=== PATIENT | male | born 1935 | race American Indian/Alaskan Native ===

== ENCOUNTER 2017-02-27 18:58 | Inpatient (IN) | payer MEDICARE ==
--- NOTE | 2017-02-27 19:24 | C.PDOC ---
History Of Present Illness Patient is an 81 year old male who presents to the ER with a complaint of intermittent chest pain since yesterday. He states the pain is to his chest wall ; denies SOB, fever or cough. Chief Complaint (Nursing): Chest Pain History Per: Patient History/Exam Limitations: no limitations Onset/Duration Of Symptoms: Days, Intermittent Episodes Current Symptoms Are (Timing): Still Present Associated Symptoms: denies: Other (SOB, fever, cough) Modifying Factors: None Exacerbating Factors: None Alleviating Factors: None Recent travel outside of the [place]: No Past Medical History Reviewed: Historical Data, Nursing Documentation, Vital Signs Vital Signs: Last Vital Signs Temp 98.4 F 02/27/17 19:08 Pulse 73 02/27/17 21:05 Resp 20 02/27/17 21:05 BP 168/81 H 02/27/17 21:05 Pulse Ox 95 02/27/17 21:07 - Medical History PMH: Arthritis, Asthma, HTN Surgical History: No Surg Hx Family History: States: Unknown Family Hx - Social History Hx Alcohol Use: Yes Hx Substance Use: No - Immunization History Hx Tetanus Toxoid Vaccination: No Hx Influenza Vaccination: Yes Hx Pneumococcal Vaccination: No Review Of Systems Constitutional: Negative for: Fever Cardiovascular: Positive for: Chest Pain Respiratory: Negative for: Cough, Shortness of Breath Physical Exam - Physical Exam Appears: Non-toxic, No Acute Distress Skin: Normal Color, Warm, Dry Head: Atraumatic, Normacephalic Oral Mucosa: Moist Chest: Symmetrical, No Tenderness Cardiovascular: Rhythm Regular, No Murmur Respiratory: No Rales, No Rhonchi, Wheezing (Occasional bilaterally) Gastrointestinal/Abdominal: Soft, No Tenderness Extremity: Pedal Edema (+1 pitting bilaterally) Neurological/Psych: Oriented x3, Normal Speech, Normal Cognition ED Course And Treatment - Laboratory Results Result Diagrams: 02/27/17 20:03 02/27/17 20:03 ECG: Interpreted By Me, Viewed By Me ECG Rhythm: Sinus Rhythm, Nonspecific Changes ECG Interpretation: Abnormal Interpretation Of ECG: Sinus rhythm with sinus arrythmia, nonspc st-T flattenibg lateral leads. no acute change from old tracings of 07/11/2016 Rate From EC O2 Sat by Pulse Oximetry: 95 (Room air) Pulse Ox Interpretation: Normal - Radiology CXR: Interpreted by Me, Viewed By Me CXR Interpretation: Yes: No Acute Disease. No: Infiltrates, Cardiomegaly Progress Note: EKG, blood work and CXR ordered. Disposition Discussed With Dr.: Charlie Vallecillo Doctor Will See Patient In The: Hospital Counseled Patient/Family Regarding: Diagnosis - Disposition Disposition: HOSPITALIZED Disposition Time: 21:29 Condition: STABLE - Clinical Impression Clinical Impression: Chest pain, Renal insufficiency - Scribe Statement The provider has reviewed the documentation as recorded by the Scribjanessa Thorpe All medical record entries made by the Marvibjanessa were at my direction and personally dictated by me. I have reviewed the chart and agree that the record accurately reflects my personal performance of the history, physical exam, medical decision making, and the department course for this patient. I have also personally directed, reviewed, and agree with the discharge instructions and disposition.
[2017-02-27] MEDS ORDERED: Albuterol 0.042% Inhal Sol (1.25 mg/3 mL) UD IH STA (19:34)
[2017-02-27] MEDS ORDERED: Nitroglycerin 2% Ointment Foilpak UD TOP STA (19:35)
[2017-02-27] MEDS ORDERED: Nitroglycerin 2% Ointment Foilpak UD TOP ONE (20:07)
[2017-02-27 20:10] LABS: BASO % 0.7 % (0.0-2.0); EOS # 0.1 K/uL (0.0-0.7); EOS % 1.3 % (0.0-4.0); HEMOGLOBIN 10.7 g/dL (12.0-18.0); LYMPH # 1.1 K/uL (1.0-4.3); LYMPH % 17.2 % (20.0-40.0); MEAN CORPUSCULAR HEMOGLOBIN 30.9 pg (27.0-31.0); MEAN CORPUSCULAR HGB CONC 32.5 g/dL (33.0-37.0); MEAN PLATELET VOLUME 8.3 fL (7.2-11.7); MONO # 0.9 K/uL (0.0-0.8); MONO % 14.1 % (0.0-10.0); NEUT # 4.2 K/uL (1.8-7.0); NEUT % 66.7 % (50.0-75.0); RBC 3.45 Mil/uL (4.40-5.90); RED CELL DISTRIBUTION WIDTH 13.9 % (11.5-14.5); WHITE BLOOD COUNT 6.3 K/uL (4.8-10.8)
[2017-02-27 20:17] LABS: ALBUMIN 3.5 g/dL (3.5-5.0)
[2017-02-27 20:18] LABS: INR 1.3; PROTHROMBIN TIME 14.3 SECONDS (9.7-12.2)
[2017-02-27 20:20] LABS: ALB/GLOB RATIO 1.1 (1.0-2.1); AST/SGOT 19 U/L (17-59); GFR AFRICAN-AMERICAN 41; GFR NON-AFRICAN AMERICAN 34
[2017-02-27 20:21] LABS: ALT/SGPT 25 U/L (21-72); BLOOD UREA NITROGEN 32 mg/dL (9-20); CALCIUM 9.3 mg/dl (8.6-10.4); URIC ACID 10.3 mg/dL (3.5-8.5)
[2017-02-27] MEDS ORDERED: Albuterol-Ipratrop 3 mg / 0.5 (3 ml) UD ONE (20:25)
[2017-02-27 20:35] LABS: B-TYPE NATRIURETIC PEPTIDE 698 pg/mL (0-900)
[2017-02-28] MEDS: Albuterol-Ipratrop 3 mg / 0.5 (3 ml) UD INH SCH ×4 (01:19→19:43)
[2017-02-28] MEDS: Enoxaparin 150 mg Syringe SC SCH ×3 (01:30→11:48)
[2017-02-28 05:29] LABS: CK-MB 1.1 ng/mL (0.0-3.38)
--- NOTE | 2017-02-28 08:36 | CP.PCM.CON ---
History of Present Illness - History of Present Illness History of Present Illness: CC chest pain frontal headache HPI Patient is an 81 year old male who presents to the ER with a complaint of intermittent chest pain since yesterday. He states the pain is to his chest wall ; denies SOB, fever or cough. Pt also c/o frontal headache for the last 3 days. Pt denied nausea and vomitting. Review of Systems - Constitutional Constitutional: Headache - EENT Nose/Mouth/Throat: absent: Nasal Congestion - Cardiovascular Cardiovascular: Chest Pain, Dyspnea on Exertion. absent: Edema - Respiratory Respiratory: absent: Excessive Mucous Production - Gastrointestinal Gastrointestinal: absent: Abdominal Pain, Diarrhea - Neurological Neurological: absent: Abnormal Gait Past Patient History - Infectious Disease Hx of Infectious Diseases: None - Past Medical History & Family History Past Medical History?: Yes - Past Social History Smoking Status: Never Smoked - CARDIAC Hx Cardiac Disorders: Yes Hx Hypertension: Yes - PULMONARY Hx Respiratory Disorders: Yes Hx Asthma: Yes - NEUROLOGICAL Hx Neurological Disorder: No - HEENT Hx HEENT Problems: No - RENAL Hx Chronic Kidney Disease: No - ENDOCRINE/METABOLIC Hx Endocrine Disorders: No - HEMATOLOGICAL/ONCOLOGICAL Hx Blood Disorders: No - INTEGUMENTARY Hx Dermatological Problems: No - MUSCULOSKELETAL/RHEUMATOLOGICAL Hx Musculoskeletal Disorders: Yes Hx Arthritis: Yes Hx Falls: No - GASTROINTESTINAL Hx Gastrointestinal Disorders: No - GENITOURINARY/GYNECOLOGICAL Hx Genitourinary Disorders: No - PSYCHIATRIC Hx Psychophysiologic Disorder: No Hx Substance Use: No - SURGICAL HISTORY Hx Surgeries: No - ANESTHESIA Hx Anesthesia: No Hx Anesthesia Reactions: No Hx Malignant Hyperthermia: No Has any member of the family had a problem w/ anesthesia?: No Meds Allergies/Adverse Reactions: Allergies Allergy/AdvReac Type Severity Reaction Status Date / Time No Known Allergies Allergy Verified 07/09/16 16:33 - Medications Medications: Current Medications Albuterol/Ipratropium (Duoneb 3 Mg/0.5 Mg (3 Ml) Ud) 3 ml INH RQ6 [facility] Last Admin: 02/28/17 08:08 Dose: 3 ml Clopidogrel Bisulfate (Plavix) 75 mg PO DAILY [facility] Enoxaparin Sodium (Lovenox) 80 mg SC Q12H [facility] Last Admin: 02/28/17 01:33 Dose: Not Given Metoprolol Tartrate (Lopressor) 50 mg PO BID [facility] Pneumococcal Polyvalent Vaccine (Pneumovax 23 Vaccine) 0.5 ml IM .ONCE ONE Stop: 02/28/17 10:01 Physical Exam - Constitutional Appears: Non-toxic - Head Exam Head Exam: NORMAL INSPECTION - Eye Exam Eye Exam: absent: Scleral icterus - ENT Exam ENT Exam: Mucous Membranes Moist - Neck Exam Neck exam: Positive for: Full Rom - Respiratory Exam Respiratory Exam: absent: Decreased Breath Sounds - Cardiovascular Exam Cardiovascular Exam: REGULAR RHYTHM - Extremities Exam Extremities exam: Negative for: calf tenderness, pedal edema Results - Vital Signs Recent Vital Signs: Last Vital Signs Temp 97.4 F L 02/28/17 08:11 Pulse 54 L 02/28/17 08:11 Resp 20 02/28/17 08:11 BP 160/80 H 02/28/17 08:11 Pulse Ox 97 02/28/17 08:11 - Labs Result Diagrams: 02/27/17 20:03 02/27/17 20:03 Labs: Laboratory Results - last 24 hr 02/28/17 05:06 Total Creatine Kinase 73 CK-MB (Mass) 1.10 Troponin I, Quant 0.0170 Assessment & Plan - Assessment and Plan (Free Text) Assessment: Chest pain - r/o CAD Headache ? etiology Renal insufficiency Hx of asthma Plan: trops q8h x 3 echo If trops is neg, Lexiscan stress test Agree w/ beta-yanni and anti-platelet
--- NOTE | 2017-02-28 09:24 | CP.PCM.HP ---
History of Present Illness - History of Present Illness History of Present Illness: CC: Headache 81 y/o male with HTN, COPD and DJD. Patient seen in ER c/o tension like headache. In ER also states he has intermittent chest pressure x days. Chest pain is last for seconds and will go away. Also noted inc D -dimer. Present on Admission - Present on Admission Any Indicators Present on Admission: Yes History of DVT/PE: No History of Uncontrolled Diabetes: No Urinary Catheter: No Decubitus Ulcer Present: No Review of Systems - Review of Systems Systems not reviewed;Unavailable: Respiratory Distress - Constitutional Constitutional: Daytime Sleepiness, Headache. absent: Weight Loss - EENT Eyes: absent: Blurred Vision, Change in Vision, Loss of Peripheral Vision, Requires Corrective Lenses Nose/Mouth/Throat: absent: Nasal Discharge, Change in Voice, Dysphagia - Cardiovascular Cardiovascular: Chest Pain, Palpitations. absent: Chest Pain at Rest, Diaphoresis, Edema, Leg Edema, Leg Ulcers, Orthopnea, Pedal Edema - Respiratory Respiratory: Cough. absent: Dyspnea on Exertion, Snoring, Chest Congestion, Change in Mucous Color - Gastrointestinal Gastrointestinal: absent: Diarrhea, Heartburn, Loose Stools, Melena, Nausea - Genitourinary Genitourinary: absent: Difficulty Urinating, Urinary Incontinence, Freq UTI - Musculoskeletal Musculoskeletal: absent: Joint Swelling, Muscle Weakness, Myalgias - Integumentary Integumentary: absent: Bleeding Lesions, Furuncle, Photosensitivity, Pruritus - Neurological Neurological: absent: Abnormal Gait, Abnormal Hearing, Focal Weakness, Lack of Coordination, Paresthesias, Syncope Past Patient History - Infectious Disease Hx of Infectious Diseases: None - Past Medical History & Family History Past Medical History?: Yes - Past Social History Smoking Status: Never Smoked - CARDIAC Hx Cardiac Disorders: Yes Hx Hypertension: Yes - PULMONARY Hx Respiratory Disorders: Yes Hx Asthma: Yes - NEUROLOGICAL Hx Neurological Disorder: No - HEENT Hx HEENT Problems: No - RENAL Hx Chronic Kidney Disease: No - ENDOCRINE/METABOLIC Hx Endocrine Disorders: No - HEMATOLOGICAL/ONCOLOGICAL Hx Blood Disorders: No - INTEGUMENTARY Hx Dermatological Problems: No - MUSCULOSKELETAL/RHEUMATOLOGICAL Hx Musculoskeletal Disorders: Yes Hx Arthritis: Yes Hx Falls: No - GASTROINTESTINAL Hx Gastrointestinal Disorders: No - GENITOURINARY/GYNECOLOGICAL Hx Genitourinary Disorders: No - PSYCHIATRIC Hx Psychophysiologic Disorder: No Hx Substance Use: No - SURGICAL HISTORY Hx Surgeries: No - ANESTHESIA Hx Anesthesia: No Hx Anesthesia Reactions: No Hx Malignant Hyperthermia: No Has any member of the family had a problem w/ anesthesia?: No Meds Allergies/Adverse Reactions: Allergies Allergy/AdvReac Type Severity Reaction Status Date / Time No Known Allergies Allergy Verified 07/09/16 16:33 Physical Exam - Constitutional Appears: No Acute Distress - Eye Exam Eye Exam: Normal appearance - ENT Exam ENT Exam: Mucous Membranes Moist - Neck Exam Neck exam: Negative for: Full Rom, Lymphadenopathy, Normal Inspection - Respiratory Exam Respiratory Exam: Clear to Auscultation Bilateral. absent: Rales, Rhonchi, Wheezes - Cardiovascular Exam Cardiovascular Exam: JVD, +S1, +S2. absent: Gallop, REGULAR RHYTHM, Systolic Murmur - GI/Abdominal Exam GI & Abdominal Exam: Soft. absent: Guarding, Tenderness - Extremities Exam Extremities exam: Positive for: full ROM, normal capillary refill. Negative for : calf tenderness, joint swelling Results - Vital Signs Recent Vital Signs: Last Vital Signs Temp 97.4 F L 02/28/17 08:11 Pulse 54 L 02/28/17 08:11 Resp 20 02/28/17 08:11 BP 160/80 H 02/28/17 08:11 Pulse Ox 97 02/28/17 08:11 - Labs Result Diagrams: 02/27/17 20:03 02/27/17 20:03 Labs: Laboratory Results - last 24 hr 02/28/17 05:06 Total Creatine Kinase 73 CK-MB (Mass) 1.10 Troponin I, Quant 0.0170 - EKG Data EKG Interpreted by: Myself Rate: Normal Assessment & Plan - Assessment and Plan (Free Text) Assessment: Chest pain w/ inc D -dimer; CKD HTN, COPD 2-D echo Concentric LVH Cont meds/ For Stress test
[2017-02-28] MEDS ORDERED: Pneumococcal 23-Valent Vaccine IM ONE (10:00)
--- NOTE | 2017-02-28 10:31 | RAD ---
PROCEDURE: CHEST RADIOGRAPH, 1 VIEW HISTORY: chest pain COMPARISON: None available. FINDINGS: LUNGS: No focal infiltrate or effusion. Small nodular densities at the left costophrenic angle may represent confluence of shadows with ribs and vessels. PLEURA: No pneumothorax or pleural fluid seen. CARDIOVASCULAR: Normal. OSSEOUS STRUCTURES: No significant abnormalities. VISUALIZED UPPER ABDOMEN: Normal. OTHER FINDINGS: None. IMPRESSION: No focal infiltrate or effusion. Small nodular densities at the left costophrenic angle may represent confluence of shadows with ribs and vessels.
[2017-02-28] MEDS: Enoxaparin 80 mg Syringe SC SCH (18:31)
[2017-03-01] MEDS: Albuterol-Ipratrop 3 mg / 0.5 (3 ml) UD INH SCH ×2 (01:26→08:03)
[2017-03-01] MEDS: Enoxaparin 80 mg Syringe SC SCH (05:36)
--- NOTE | 2017-03-01 06:39 | CARD ---
APPROVED REPORT EKG Measurement Heart [id number] CO 176P [id number] <Conclusion> Sinus rhythm with marked sinus arrhythmia Left anterior fascicular block Septal infarct, age undetermined Abnormal ECG
[2017-03-01 07:43] LABS: CK-MB 1.81 ng/mL (0.0-3.38)
--- NOTE | 2017-03-01 08:29 | CP.PCM.PN ---
Subjective - Date & Time of Evaluation Date of Evaluation: 03/01/17 Time of Evaluation: 08:20 - Subjective Subjective: Patient no compain; Express wish to go home Headache and chest pain is better; minimal dry cogu, no SOB, no edema Objective - Vital Signs/Intake and Output Vital Signs (last 24 hours): Temp Pulse Resp BP Pulse Ox 98.3 F 65 20 134/75 98 03/01/17 05:38 03/01/17 07:30 03/01/17 05:38 03/01/17 05:38 03/01/17 05:38 Intake and Output: 03/01/17 03/01/17 06:59 18:59 Intake Total 480 Balance 480 - Medications Medications: Current Medications Albuterol/Ipratropium (Duoneb 3 Mg/0.5 Mg (3 Ml) Ud) 3 ml INH RQ6 [facility] Last Admin: 03/01/17 08:03 Dose: 3 ml Clonidine HCl (Catapres) 0.1 mg PO DAILY [facility] Last Admin: 02/28/17 21:02 Dose: 0.1 mg Clopidogrel Bisulfate (Plavix) 75 mg PO DAILY [facility] Last Admin: 02/28/17 10:10 Dose: 75 mg Enoxaparin Sodium (Lovenox) 80 mg SC Q12H [facility] Last Admin: 03/01/17 05:36 Dose: 80 mg Metoprolol Tartrate (Lopressor) 50 mg PO BID [facility] Last Admin: 02/28/17 18:25 Dose: Not Given - Labs Labs: PT 14.3 SECONDS (9.7-12.2) H 02/27/17 20:03 INR 1.3 02/27/17 20:03 APTT 38 SECONDS (21-34) H 02/27/17 20:03 - Constitutional Appears: No Acute Distress - Eye Exam Eye Exam: Normal appearance - ENT Exam ENT Exam: Mucous Membranes Moist - Neck Exam Neck Exam: Full ROM. absent: Lymphadenopathy, Meningismus - Respiratory Exam Respiratory Exam: Clear to Ausculation Bilateral. absent: Rales, Rhonchi, Wheezes - Cardiovascular Exam Cardiovascular Exam: REGULAR RHYTHM, +S1, +S2. absent: Gallop, JVD, Murmur - GI/Abdominal Exam GI & Abdominal Exam: Soft. absent: Tenderness, Mass - Extremities Exam Extremities Exam: Calf Tenderness, Full ROM, Normal Capillary Refill. absent: Joint Swelling Assessment and Plan - Assessment and Plan (Free Text) Plan: Chest pain; HTN w/ LVH COPD For stress test; ?will discharge if clear with Cardio
[2017-03-01] MEDS ORDERED: Aminophylline 25 mg/ml Inj ONE (08:54)
[2017-03-01 16:44] VITALS: BP 153/76; RESP 20; TEMP 97.6; O2SAT 98
--- NOTE | 2017-03-01 18:54 | CARD ---
APPROVED REPORT Protocol: LEXISCAN Test Type: LEXISCAN STRESS Test Indications: CHEST PAIN RENAL INSUFFICENCY Target HR: 140 bpm Resting ECG: NSR W/ NS ST T CHANGES Resting Heart Rate: 64 bpm Resting Blood Pressure: 136/80mmHg submaximum (85%): 119 bpm TEST SUMMARY PREINFSNHYPERV.03:[id number]/80.1. INFUSIONDOSE 100:300.00.01.076/.0. [id number]/80.4. PROCEDURE Pharmacologic stress testing was performed using 0.4mg per 5ml of regadenoson given intravenously over 7-10 seconds. Reversal agent aminophyline 100 mg, given intravenously for Headache. POST EXERCISE Reason for Termination: Protocol Completed Target HR: No Max HR: 76 bpm 62% of Maximum Predicted HR: 140 bpm Exercise duration: 00:30 min:sec, 0 Stage Exercise capacity: 1.0METs Max Blood Pressure: 136/80mmHg Blood Pressure response to exercise: normal resting BP - appropriate response Heart Rate response to exercise: appropriate Chest Pain: No, none Angina index: 0 Arrhythmia: No, none ST Change: No, none Deviation: 0 mm INTERPRETATION Stress EKG Conclusion: NEGATIVE LEXISCAN STRESS TEST NORMAL BP RESPONSE TO LEXISCAN NUCLEAR STUDIES TO BE READ SEPARATELY EXAM: Myocardial Perfusion STRESS/REST Imaging Protocol The imaging protocol used to acquire images was Stress Tc-99m/rest Tc-99m 1 day Stress Spect myocardial perfusion imaging was performed in supine position 40 minutes following the injection of 13.2 mCi of Tc-99 Myoview. Gated Rest Spect was performed 39 minutes after intravenous 31.6 mCi Tc-99 Myoview injection. The images were gated to evaluate regional wall motion and calculate ventricular ejection fraction.Images were reconstructed using backfilter projection method in short horizontal and verticle long axis. Spect slices were generated. RESTING DATA FOT298.48uaTA0.00L/min ESV70.00mlMyocardial Okqc527.00g Av. Heart Rate60.00bpm EF49.00% STRESS DATA RLG822.76ogAA5.60L/min ESV50.00mlMyocardial Roye572.00g EF63.00% Regional WT score at stress:0.00 Regional WM score at stress:0.00 Summed WT score at stress:5.00 Av. Heart Rate66.00bpmSummed WM score at stress:4.00 LV Perf. Quant 17 Seg. SSS6.00 17 Seg. SRS5.00 17 Seg. SDS1.00 Stress Defect Extent (% LAD)0.00Rest Defect Extent (% LAD)0.00Rev. Defect Extent (% LAD)0.00 Stress Defect Extent (% LCX)22.50Rest Defect Extent (% LCX)17.50Rev. Defect Extent (% LCX)6.30 Stress Defect Extent (% RCA)16.70Rest Defect Extent (% RCA)14.40Rev. Defect Extent (% RCA)0.00 Stress Defect Extent (% MERA)12.40Rest Defect Extent (% MERA)9.60Rev. Defect Extent (% MERA)4.10 IMPRESSION Abnormal Myocardial Perfusion exercise stress study Left Ventricle LV Size/Shape: The left ventricle is normal size. LV Function:Left ventricle systolic function is normal. The Ejection Fraction is 45-50%. Regional Wall Motion:There is normal left ventricular wall motion. Metabolism/Perfusion Defects: There is scan evidence of reversible ischemia in the inferior wall. Conclusion 1. There is scan evidence of reversible ischemia in the inferior wall. 2. Left ventricle systolic function is normal. 3. The Ejection Fraction is 45-50%.
[2017-03-01 21:14] VITALS: PULSE 58
== END 2017-03-01 18:15 | disposition home or self-care (01) | DRG 313 ==
LOC: C.ER 18:58 → C.9E 21:29 → C.6T 22:35
PROVIDERS: ADMIT Internal Medicine; ATTEND Internal Medicine
DX: R07.89 Other chest pain (principal); J44.9 Chronic obstructive pulmonary disease, unspecified; I12.9 Hypertensive chronic kidney disease with stage 1 through stage 4 chronic kidney disease, or unspecified chronic kidney disease; N18.9 Chronic kidney disease, unspecified; M19.90 Unspecified osteoarthritis, unspecified site

== ENCOUNTER 2017-05-05 20:19 | Emergency (ER) | payer MEDICARE ==
[2017-05-05 20:27] VITALS: O2SAT 99
--- NOTE | 2017-05-05 21:16 | C.PDOC ---
History Of Present Illness 81 yo male presents to the ED with complaints of right posterior shoulder pain ; patient reports pain radiates to right lateral neck. Denies taking any medication at home, falls/injuries, chest pain, SOB, cough, fever, or palpitations. Admits to hx of HTN but was taken off of medication by PCP; patient does not recall name of medication. Time Seen by Provider: 05/05/17 20:33 Chief Complaint (Nursing): Back Pain History Per: Patient History/Exam Limitations: no limitations Onset/Duration Of Symptoms: Days (2) Current Symptoms Are (Timing): Still Present Quality Of Discomfort: "Pain" Severity: Mild Previous Symptoms: denies: Prior Injury Exacerbating Factor(s): Movement Past Medical History Reviewed: Historical Data, Nursing Documentation, Vital Signs Vital Signs: Last Vital Signs Temp 97.8 F 05/05/17 21:42 Pulse 59 L 05/05/17 21:42 Resp 17 05/05/17 21:42 BP 173/75 H 05/05/17 21:42 Pulse Ox 99 05/05/17 21:43 - Medical History PMH: Arthritis, Asthma, HTN Other PMH: kidney dz Surgical History: No Surg Hx Family History: States: No Known Family Hx - Social History Hx Alcohol Use: No (socially) Hx Substance Use: No - Immunization History Hx Tetanus Toxoid Vaccination: No Hx Influenza Vaccination: No Hx Pneumococcal Vaccination: No Review Of Systems Except As Marked, All Systems Reviewed And Found Negative. Constitutional: Negative for: Fever Cardiovascular: Negative for: Chest Pain, Palpitations Respiratory: Negative for: Cough, Shortness of Breath Gastrointestinal: Negative for: Nausea, Vomiting, Abdominal Pain Musculoskeletal: Positive for: Neck Pain, Shoulder Pain Skin: Negative for: Rash Physical Exam - Physical Exam Appears: Well, Non-toxic, Other (comfortable; speaking in complete sentences. ) Skin: Normal Color, Warm, Dry, No Rash Head: Atraumatic, Normacephalic Oral Mucosa: Moist Neck: No Midline Cervical Tenderness, No Paracervical Tenderness, No Step Off Deformity, Supple, Other (tender to palpation at right side trapezius muscle. ) Chest: Symmetrical, No Tenderness Cardiovascular: Rhythm Regular Respiratory: Normal Breath Sounds, No Rales, No Rhonchi, No Wheezing Gastrointestinal/Abdominal: Normal Exam, Bowel Sounds, Soft, No Tenderness Extremity: Normal ROM (normal ROM intact of right shoulder. ), Tenderness ( Right posterior shoulder tender to palpation above scapular region), Pedal Edema (trace pitting edema of feet/lower legs. ), Capillary Refill (< 2 sec all digits ), No Deformity, No Swelling Extremity: Bilateral: Normal Color And Temperature Pulses: Left Radial: Normal, Right Radial: Normal Neurological/Psych: Oriented x3, Normal Motor, Normal Sensation Gait: Steady ED Course And Treatment ECG: Interpreted By Me, Viewed By Me ECG Rhythm: Sinus Bradycardia ECG Interpretation: No Acute Changes Interpretation Of ECG: Left axis deviation, no acute ST/T wave changes Rate From EC (bpm) O2 Sat by Pulse Oximetry: 99 (Room air ) Pulse Ox Interpretation: Normal - Other Rad shoulder XR X-Ray: Interpreted by Me, Viewed By Me Interpretation: no fracture/dislocations; arthritic changes. Progress Note: Patient given PO Tylenol and Flexeril. Xray of left shoulder ordered and reviewed. EKG done at triage and reviewed. Reevaluation Time: 21:25 Reassessment Condition: Improved (On reassessment, patient reports improvement in his shoulder pain, states he feels better and would like to go home. Xray shows mild arthritic changes. Rxs given for tylenol and flexeril (patient has h/o renal insufficiency), and he was instructed to follow up with orthopedics within 1 week. He understands he should return to ED if he has any concerning symptoms.) Disposition Counseled Patient/Family Regarding: Studies Performed, Diagnosis, Need For Followup, Rx Given - Disposition Referrals: Yevgeniy Vallecillo MD [Primary Care Provider] - Jefferson Feliciano MD [Staff Provider] - Disposition: HOME/ ROUTINE Disposition Time: 21:25 Condition: STABLE Additional Instructions: FOLLOW UP WITH YOUR DOCTOR IN 1-2 DAYS USE MEDICATION NEEDED RETURN TO EMERGENCY ROOM IF SYMPTOMS WORSEN Prescriptions: Acetaminophen [Tylenol 325mg tab] 650 mg PO Q6 PRN #30 tab PRN Reason: pain/fever Cyclobenzaprine [Cyclobenzaprine HCl] 10 mg PO BID PRN #15 tab PRN Reason: Muscle Spasm Instructions: Osteoarthritis (ED), Shoulder Pain (ED) Forms: [facility] (Mozambican) Print Language: GAMBIAN - POA Present On Arrival: None - Clinical Impression Clinical Impression: Right shoulder pain, Osteoarthritis - Scribe Statement The provider has reviewed the documentation as recorded by the Scribe Sarah [place] All medical record entries made by the Charlene were at my direction and personally dictated by me. I have reviewed the chart and agree that the record accurately reflects my personal performance of the history, physical exam, medical decision making, and the department course for this patient. I have also personally directed, reviewed, and agree with the discharge instructions and disposition.
[2017-05-05 21:43] VITALS: BP 173/75; PULSE 59; RESP 17; TEMP 97.8
--- NOTE | 2017-05-06 08:12 | RAD ---
PROCEDURE: Radiographs of the Right Shoulder HISTORY: right shoulder pain COMPARISON: No prior. FINDINGS: BONES: No suspicious lytic or blastic changes identified throughout the right shoulder. No fracture. JOINTS: No dislocation or subluxation. Degenerate changes seen at the acromioclavicular joint more so than glenohumeral joint. SOFT TISSUES: Normal. OTHER FINDINGS: None. IMPRESSION: No acute fracture subluxation or dislocation. Degenerate changes are identified as discussed above.
--- NOTE | 2017-05-09 00:34 | CARD ---
APPROVED REPORT EKG Measurement Heart [id number] ND [id number] <Conclusion> Sinus bradycardia Left anterior fascicular block Nonspecific ST abnormality Abnormal ECG
== END 2017-05-05 21:43 | disposition home or self-care (01) ==
LOC: C.ER 20:19 → SUPCPDRO 20:19 → C.ER 21:43
DX: M25.511 Pain in right shoulder (principal); M19.90 Unspecified osteoarthritis, unspecified site; I10 Essential (primary) hypertension

== ENCOUNTER 2017-10-31 02:42 | Emergency (ER) | payer MEDICARE ==
[2017-10-31 02:53] VITALS: RESP 20
--- NOTE | 2017-10-31 03:03 | C.PDOC ---
History Of Present Illness Pt started with a headache around midnight. No f/c/n/v. slurred speech, dizziness, weakness,cp or palpitations. did not have anything to take for it so he came to the ed. Time Seen by Provider: 10/31/17 03:02 Chief Complaint (Nursing): Headache History Per: Patient History/Exam Limitations: no limitations Onset/Duration Of Symptoms: Hrs Current Symptoms Are (Timing): Better Severity: Mild Pain Scale Rating Of: 3 Quality: Dull, Pressure Preceeding Symptoms: None Associated Symptoms: denies: Photophobia, Blurred Vision, Nausea, Vomiting, Extremity Weakness Recent travel outside of the [place]: No Additional History Per: Family Past Medical History Reviewed: Historical Data, Nursing Documentation, Vital Signs Vital Signs: Last Vital Signs Temp 97.5 F L 10/31/17 02:50 Pulse 73 10/31/17 02:50 Resp 20 10/31/17 02:50 BP 165/84 H 10/31/17 02:50 Pulse Ox 99 10/31/17 03:24 - Medical History PMH: Arthritis, Asthma, HTN Denies: Chronic Kidney Disease Family History: States: No Known Family Hx - Social History Hx Alcohol Use: No (socially) Hx Substance Use: No - Immunization History Hx Tetanus Toxoid Vaccination: No Hx Influenza Vaccination: No Hx Pneumococcal Vaccination: No Review Of Systems Constitutional: Negative for: Fever, Chills Eyes: Negative for: Redness ENT: Negative for: Throat Pain Cardiovascular: Negative for: Chest Pain Gastrointestinal: Negative for: Nausea, Vomiting Skin: Negative for: Rash Neurological: Positive for: Headache. Negative for: Weakness, Numbness, Altered Mental Status, Dizziness Psych: Negative for: Anxiety Physical Exam - Physical Exam Appears: Non-toxic, No Acute Distress Skin: Warm, Dry Head: Normacephalic Eye(s): bilateral: Normal Inspection Oral Mucosa: Moist Neck: Trachea Midline, Supple Extremity: Normal ROM Neurological/Psych: Oriented x3, Normal Speech, Normal Cognition Gait: Steady ED Course And Treatment O2 Sat by Pulse Oximetry: 99 Pulse Ox Interpretation: Normal Reevaluation Time: 04:10 Reassessment Condition: Improved Disposition Counseled Patient/Family Regarding: Studies Performed, Diagnosis, Need For Followup - Disposition Referrals: Yevgeniy Vallecillo MD [Staff Provider] - Disposition: HOME/ ROUTINE Disposition Time: 03:03 Condition: FAIR Additional Instructions: Please return if symptoms recur Instructions: Headache, Adult (DC) Forms: [facility] (Georgian) - Clinical Impression Clinical Impression: Headache
--- NOTE | 2017-10-31 04:29 | CT ---
EXAM: CT Head Without Intravenous Contrast CLINICAL HISTORY: 82 years old, male; Pain; Headache; Additional info: Severe headache TECHNIQUE: Axial computed tomography images of the head/brain without intravenous contrast. All CT scans at this facility use one or more dose reduction techniques, viz.: automated exposure control; ma/kV adjustment per patient size (including targeted exams where dose is matched to indication; i.e. head); or iterative reconstruction technique. Coronal and sagittal reformatted images were created and reviewed. COMPARISON: No relevant prior studies available. FINDINGS: Brain: Gpue-ae-[id number] atrophy. No intracranial hemorrhage. No mass. Few scattered foci of decreased attenuation within periventricular/subcortical white matter. No definite edema. Ventricles: No hydrocephalus. Bones/joints: No acute fracture. Soft tissues: Unremarkable. Vasculature: Mild atherosclerotic disease of intracranial arteries. Sinuses: Minimal mucosal thickening of maxillary sinuses. Mastoid air cells: No mastoid effusion. Orbits: Unremarkable as visualized. IMPRESSION: 1. Nonspecific white matter changes. Acute infarction may be CT occult within first 24 hours. If a focal deficit persists, consider followup CT or MRI for further evaluation. 2. Incidental/non-acute findings are described above.
[2017-10-31 04:30] VITALS: BP 162/78; PULSE 62; TEMP 97.6; O2SAT 100
== END 2017-10-31 04:30 | disposition home or self-care (01) ==
LOC: C.ER 02:42
DX: R51 Headache (principal)

== ENCOUNTER 2018-10-11 11:04 | Inpatient (IN) | payer MEDICARE ==
--- NOTE | 2018-10-11 12:16 | C.PDOC ---
History Of Present Illness 83 year old male presents to the emergency department with complaints of generalized weakness for the last 4 days. Patient states that he has had difficulty ambulating. He reports a history of arthritis, and is also complaining of right hand and knee swelling and redness. He denies fever, chest pain. Time Seen by Provider: 10/11/18 11:55 Chief Complaint (Nursing): Weakness/Neurological Deficit History Per: Patient History/Exam Limitations: no limitations Onset/Duration Of Symptoms: Days (4) Current Symptoms Are (Timing): Still Present Past Medical History Reviewed: Historical Data, Nursing Documentation, Vital Signs Vital Signs: Last Vital Signs Temp 97.3 F L 10/11/18 11:32 Pulse 82 10/11/18 11:32 Resp 18 10/11/18 11:32 BP 120/65 10/11/18 11:32 Pulse Ox 99 10/11/18 11:32 - Medical History PMH: Arthritis, Asthma, HTN Denies: Chronic Kidney Disease Surgical History: No Surg Hx Family History: States: Unknown Family Hx - Social History Hx Tobacco Use: No Hx Alcohol Use: No (socially) Hx Substance Use: No - Immunization History Hx Tetanus Toxoid Vaccination: No Hx Influenza Vaccination: No Hx Pneumococcal Vaccination: No Review Of Systems Except As Marked, All Systems Reviewed And Found Negative. Constitutional: Positive for: Weakness. Negative for: Fever Cardiovascular: Negative for: Chest Pain Musculoskeletal: Positive for: Hand Pain (right), Leg Pain (right knee) Physical Exam - Physical Exam Appears: Non-toxic, No Acute Distress Skin: Normal Color, Warm, Dry Head: Atraumatic, Normacephalic Eye(s): bilateral: Normal Inspection Neck: Normal, Supple Chest: Symmetrical, No Tenderness Cardiovascular: Rhythm Regular, No Murmur Respiratory: Normal Breath Sounds, No Rales, No Rhonchi, No Wheezing Extremity: No Normal ROM (decreased range of motion at the right knee), Tenderness (to the right hand, right wrist, and right knee), Swelling (swelling to the right hand, right wrist, and right knee. ), Other (Erythema to the right hand, right wrist, and right knee) Neurological/Psych: Oriented x3, Normal Speech, Normal Cognition, Normal Motor, Normal Sensation ED Course And Treatment - Laboratory Results Result Diagrams: 10/11/18 12:43 10/11/18 12:43 Interpretation Of ECG: Sinus bradycardia at 59bpm, nonspecific ST abnormalities. O2 Sat by Pulse Oximetry: 99 (RA) Pulse Ox Interpretation: Normal - Radiology CXR: Interpreted by Me CXR Interpretation: Yes: Other (No active pathology.) - CT Scan/US XR Right Hand/Wrist Other Rad Studies (CT/US): Interpreted By Me CT/US Interpretation: Arthritis, no acute fracture or dislocation. Medical Decision Making Medical Decision Making: Plan: EKG Chemistry CBC CXR XR Right Urine Culture Urinalysis 13:56 Dr. Vallecillo accepted the patient to telemetry. Requests Nephrology consult from Dr. Beka Villalta Disposition Discussed With DrIron: Yevgeniy Vallecillo Doctor Will See Patient In The: Hospital Counseled Patient/Family Regarding: Studies Performed, Diagnosis - Disposition Disposition: HOSPITALIZED Disposition Time: 13:59 Condition: STABLE Forms: [facility] (Kiswahili) - POA Present On Arrival: None - Clinical Impression Clinical Impression: Renal failure, Gout, Hyperkalemia - Scribe Statement The provider has reviewed the documentation as recorded by the Scribe (Pb Toscano) All medical record entries made by the Scribe were at my direction and personally dictated by me. I have reviewed the chart and agree that the record accurately reflects my personal performance of the history, physical exam, medical decision making, and the department course for this patient. I have also personally directed, reviewed, and agree with the discharge instructions and disposition.
[2018-10-11 12:48] LABS: BASO # 0.1 K/uL (0.0-0.2); BASO % 0.8 % (0.0-2.0); EOS # 0.1 K/uL (0.0-0.7); EOS % 1.1 % (0.0-4.0); HEMOGLOBIN 11.2 g/dL (12.0-18.0); LYMPH # 0.8 K/uL (1.0-4.3); LYMPH % 10.1 % (20.0-40.0); MEAN CELL VOLUME 96.8 fL (80.0-94.0); MEAN CORPUSCULAR HEMOGLOBIN 31.2 pg (27.0-31.0); MEAN CORPUSCULAR HGB CONC 32.3 g/dL (33.0-37.0); MEAN PLATELET VOLUME 7.9 fL (7.2-11.7); MONO # 0.8 K/uL (0.0-0.8); MONO % 10.2 % (0.0-10.0); NEUT # 6.1 K/uL (1.8-7.0); NEUT % 77.8 % (50.0-75.0); RBC 3.57 Mil/uL (4.40-5.90); RED CELL DISTRIBUTION WIDTH 13.6 % (11.5-14.5); WHITE BLOOD COUNT 7.8 K/uL (4.8-10.8)
[2018-10-11 13:02] LABS: ALB/GLOB RATIO 1.2 (1.0-2.1); ALBUMIN 4.4 g/dL (3.5-5.0); ALT/SGPT < 6 U/L (21-72); AST/SGOT 27 U/L (17-59); BLOOD UREA NITROGEN 101 mg/dL (9-20); CALCIUM 10.5 mg/dl (8.6-10.4); GFR NON-AFRICAN AMERICAN 12; URIC ACID 11.5 mg/dL (3.5-8.5)
[2018-10-11] MEDS ORDERED: Sodium Chloride 0.9% 1,000 ML IV SCH (13:15)
[2018-10-11 15:32] LABS: SQUAMOUS EPITHIAL 1 /hpf (0-5); URINE BACTERIA RARE (<OCC); URINE BILIRUBIN NEGATIVE (NEGATIVE); URINE BLOOD NEGATIVE (NEGATIVE); URINE CLARITY Clear (Clear); URINE COLOR Yellow (YELLOW); URINE GLUCOSE (UA) NORMAL (Normal); URINE LEUKOCYTE ESTERASE NEG Leu/uL (Negative); URINE PROTEIN 2+ mg/dL (NEGATIVE); URINE UROBILINOGEN NORMAL mg/dL (0.2-1.0)
--- NOTE | 2018-10-11 18:29 | RAD ---
Date of service: 10/11/2018 HISTORY: SOB COMPARISON: Chest radiographs 02/19/2017. FINDINGS: LUNGS: No active pulmonary disease. PLEURA: No significant pleural effusion identified, no pneumothorax apparent. CARDIOVASCULAR: No aortic atherosclerotic calcification present. Normal cardiac size. No pulmonary vascular congestion. OSSEOUS STRUCTURES: No significant abnormalities. VISUALIZED UPPER ABDOMEN: Normal. OTHER FINDINGS: None. IMPRESSION: No interval acute cardiopulmonary disease appreciated.
--- NOTE | 2018-10-11 18:32 | RAD ---
PROCEDURE: Right Hand Radiographs. HISTORY: pain/swelling COMPARISON: None. FINDINGS: Bones No acute fracture or destructive bony lesion identified. JOINTS: Normal. No osteoarthritic changes. SOFT TISSUES: Diffuse osteoma is seen throughout the hand without retained radiodense foreign body or emphysema soft tissue changes related. OTHER FINDINGS: None. IMPRESSION: Diffuse soft tissue edema. No acute fracture or destructive bony lesion appreciated. No dislocation.
[2018-10-11] MEDS: Sodium Chloride 0.9% 1,000 ML IV SCH (18:41)
[2018-10-12 09:23] LABS: BASO % 0.1 % (0.0-2.0); LYMPH # 0.3 K/uL (1.0-4.3); LYMPH % 5.3 % (20.0-40.0); MEAN CELL VOLUME 95.7 fL (80.0-94.0); MEAN CORPUSCULAR HEMOGLOBIN 31.4 pg (27.0-31.0); MEAN CORPUSCULAR HGB CONC 32.8 g/dL (33.0-37.0); MEAN PLATELET VOLUME 7.9 fL (7.2-11.7); MONO # 0.1 K/uL (0.0-0.8); MONO % 1.8 % (0.0-10.0); NEUT % 92.8 % (50.0-75.0); PLATELET COUNT 392 K/uL (130-400); RBC 3.19 Mil/uL (4.40-5.90); RED CELL DISTRIBUTION WIDTH 13.6 % (11.5-14.5); WHITE BLOOD COUNT 6.4 K/uL (4.8-10.8)
[2018-10-12 09:55] LABS: ALB/GLOB RATIO 1.1 (1.0-2.1); ALBUMIN 3.8 g/dL (3.5-5.0); CALCIUM 9.6 mg/dl (8.6-10.4)
[2018-10-12 11:10] LABS: LYMPHOCYTE 8 % (20-40); MONOCYTE 4 % (0-10); NEUTROPHIL 88 % (50-75); PLATELET ESTIMATE NORMAL (NORMAL); TOTAL CELLS COUNTED 100
[2018-10-12 11:12] LABS: HYPOCHROMIC SLIGHT
[2018-10-12] MEDS: Fluticasone-Vilanterol 200/25mcg Diskus INH SCH (11:24)
--- NOTE | 2018-10-12 11:45 | US ---
Date of service: 10/12/2018 PROCEDURE: Ultrasound of the Kidneys HISTORY: renal failure COMPARISON: None available. TECHNIQUE: Sonogram of the kidneys. FINDINGS: RIGHT KIDNEY: Measures: 8.9 x 4.5 x 5.5 cm. Normal in size and contour. However, corticomedullary echo parenchyma appears slightly echogenic potentially reflecting intrinsic medical renal disease. No stone, solid mass lesion or hydronephrosis visualized. LEFT KIDNEY: Measures: 10.2 x 5.1 x 4.4 cm. Similar pattern of increased corticomedullary echogenicity may indicate intrinsic medical disease though the kidney is normal in size and contour overall. No stone, solid mass lesion or hydronephrosis visualized. Two small cysts identified at the left kidney measuring 1.3 x 10.8 x 1.3 cm at the upper pole and 2.1 x 2.0 x 2.0 cm at the lower pole OTHER FINDINGS: None. IMPRESSION: No obstructive uropathy, radiodense urolithiasis or perinephric fluid collection bilaterally. 2 simple cysts identified at the left kidney as described above. Potential intrinsic medical renal disease given mildly increased echogenicity of bilateral renal parenchyma.
--- NOTE | 2018-10-12 15:05 | CP.PCM.CON ---
History of Present Illness - History of Present Illness History of Present Illness: 83 y/o AA man admitted last PM; told of renal disease. Poor historian. Records reveal PMH of HTN, dementia, gout. Unaware of h/o CKD Denies any PSH Renal failure advanced on admission, improving with IV fluid hydration. FH- no known CKD SOC- former smoker, etoh use, no known illicit drugs Renal US reveals echogenic kidneys Review of Systems - Review of Systems Systems not reviewed;Unavailable: Altered Mental Status Past Patient History - Infectious Disease Hx of Infectious Diseases: None - Past Medical History & Family History Past Medical History?: Yes Past Family History: Reviewed and not pertinent - Past Social History Chewing Tobacco Use: No Cigar Use: No Alcohol: None Drugs: Denies Home Situation {Lives}: Alone - CARDIAC Hx Hypertension: Yes - PULMONARY Hx Asthma: Yes - NEUROLOGICAL Hx Neurological Disorder: No Other/Comment: Hx of dementia - HEENT Hx HEENT Problems: No - RENAL Hx Chronic Kidney Disease: No - ENDOCRINE/METABOLIC Hx Endocrine Disorders: No - HEMATOLOGICAL/ONCOLOGICAL Hx Blood Disorders: No - INTEGUMENTARY Hx Dermatological Problems: No - MUSCULOSKELETAL/RHEUMATOLOGICAL Hx Arthritis: Yes - GASTROINTESTINAL Hx Gastrointestinal Disorders: No - GENITOURINARY/GYNECOLOGICAL Hx Genitourinary Disorders: No - PSYCHIATRIC Hx Substance Use: No - SURGICAL HISTORY Hx Surgeries: No - ANESTHESIA Hx Anesthesia: No Hx Anesthesia Reactions: No Hx Malignant Hyperthermia: No Meds Allergies/Adverse Reactions: Allergies Allergy/AdvReac Type Severity Reaction Status Date / Time No Known Allergies Allergy Verified 10/11/18 11:36 - Medications Medications: Current Medications Fluticasone/Vilanterol (Breo Ellipta 200-25 Mcg Inh) 1 puff INH RQD [facility] Last Admin: 10/12/18 11:24 Dose: Not Given Ceftriaxone Sodium 1 gm/ (Sodium Chloride) 100 mls @ 100 mls/hr IVPB DAILY [facility]; Protocol Stop: 10/16/18 16:01 Last Admin: 10/12/18 10:30 Dose: 100 mls/hr Sodium Chloride (Sodium Chloride 0.9%) 1,000 mls @ 80 mls/hr IV .[id number] [facility] Last Admin: 10/11/18 18:41 Dose: 80 mls/hr Pantoprazole Sodium (Protonix Inj) 40 mg IVP DAILY [facility] Last Admin: 02/10/19 10:30 Dose: 40 mg Prednisone (Prednisone Tab) 40 mg PO Q12 [facility] Last Admin: 10/12/18 10:30 Dose: 40 mg Physical Exam - Constitutional Appears: No Acute Distress, Chronically Ill - Head Exam Head Exam: ATRAUMATIC, NORMAL INSPECTION - Eye Exam Eye Exam: EOMI, Normal appearance - Neck Exam Neck exam: Positive for: Normal Inspection. Negative for: Tenderness - Respiratory Exam Respiratory Exam: Clear to Auscultation Bilateral, NORMAL BREATHING PATTERN - Cardiovascular Exam Cardiovascular Exam: REGULAR RHYTHM, +S1 - GI/Abdominal Exam GI & Abdominal Exam: Distended. absent: Soft - Extremities Exam Extremities exam: Positive for: normal inspection. Negative for: tenderness - Neurological Exam Neurological exam: Altered - Skin Skin Exam: Dry, Warm Results - Vital Signs Recent Vital Signs: Last Vital Signs Temp 97.8 F 10/12/18 07:00 Pulse 60 10/12/18 08:02 Resp 18 10/12/18 07:00 BP 151/97 H 10/12/18 13:16 Pulse Ox 98 10/12/18 12:02 - Labs Result Diagrams: 10/12/18 09:12 10/12/18 09:12 Labs: Laboratory Results - last 24 hr 10/11/18 10/12/18 10/12/18 15:18 09:12 09:12 WBC 6.4 RBC 3.19 L Hgb 10.0 L Hct 30.6 L MCV 95.7 H MCH 31.4 H MCHC 32.8 L RDW 13.6 Plt Count 392 MPV 7.9 Neut % (Auto) 92.8 H Lymph % (Auto) 5.3 L [place] % (Auto) 1.8 Eos % (Auto) 0.0 Baso % (Auto) 0.1 Neut # (Auto) 6.0 Lymph # (Auto) 0.3 L [place] # (Auto) 0.1 Eos # (Auto) 0.0 Baso # (Auto) 0.0 Neutrophils % (Manual) 88 H Lymphocytes % (Manual) 8 L Monocytes % (Manual) 4 Platelet Estimate Normal Hypochromasia (manual) Slight Sodium 137 Potassium 5.8 H Chloride 108 H Carbon Dioxide 17 L Anion Gap 18 BUN 98 H Creatinine 4.3 H Est GFR ( Amer) 16 Est GFR (Non-Af Amer) 13 Random Glucose 214 H D Calcium 9.6 Phosphorus 6.5 H Magnesium 2.2 Total Bilirubin 0.4 AST 22 ALT 10 L D Alkaline Phosphatase 71 Total Protein 7.3 Albumin 3.8 Globulin 3.4 Albumin/Globulin Ratio 1.1 Urine Color Yellow Urine Clarity Clear Urine pH 5.0 Ur Specific [place] 1.014 Urine Protein 2+ H Urine Glucose (UA) Normal Urine Ketones Negative Urine Blood Negative Urine Nitrate Negative Urine Bilirubin Negative Urine Urobilinogen Normal Ur Leukocyte Esterase Neg Urine WBC (Auto) 2 Urine RBC (Auto) < 1 Ur Squamous Epith Cells 1 Urine Bacteria Rare Hyaline Casts 6-10 H Assessment & Plan (1) Chronic kidney disease, stage IV (severe) Status: Acute (2) Gout Status: Acute (3) Hypertensive chronic kidney disease with stage 5 chronic kidney disease or end stage renal disease Status: Acute (4) MEMO (acute kidney injury) Status: Acute - Assessment and Plan (Free Text) Plan: add phos binder repeat labs agree with IV fluids monitor HTN; increase med dosage
--- NOTE | 2018-10-12 16:02 | CP.PCM.HP ---
History of Present Illness - History of Present Illness History of Present Illness: CC: Weakness HPI: 83 y/o male h/o HTN, Gout, CKD ? N18.3 , Dementia. Seen in ER c/o weakness, unstady gait and pain and swelling right hand. No injury. No fever. Lives with son. Family supportive. Present on Admission - Present on Admission History of DVT/PE: No History of Uncontrolled Diabetes: No Urinary Catheter: No Decubitus Ulcer Present: No Review of Systems - Review of Systems Systems not reviewed;Unavailable: Dementia All systems: reviewed and no additional remarkable complaints except (c/o joint pains, weakness, poor apetite. No fever. No SOB. No chestpain) Past Patient History - Infectious Disease Hx of Infectious Diseases: None - Past Medical History & Family History Past Medical History?: Yes Past Family History: Reviewed and not pertinent - Past Social History Chewing Tobacco Use: No Cigar Use: No Alcohol: None Drugs: Denies Home Situation {Lives}: Alone - CARDIAC Hx Hypertension: Yes - PULMONARY Hx Asthma: Yes - NEUROLOGICAL Hx Neurological Disorder: No Other/Comment: Hx of dementia - HEENT Hx HEENT Problems: No - RENAL Hx Chronic Kidney Disease: No - ENDOCRINE/METABOLIC Hx Endocrine Disorders: No - HEMATOLOGICAL/ONCOLOGICAL Hx Blood Disorders: No - INTEGUMENTARY Hx Dermatological Problems: No - MUSCULOSKELETAL/RHEUMATOLOGICAL Hx Arthritis: Yes - GASTROINTESTINAL Hx Gastrointestinal Disorders: No - GENITOURINARY/GYNECOLOGICAL Hx Genitourinary Disorders: No - PSYCHIATRIC Hx Substance Use: No - SURGICAL HISTORY Hx Surgeries: No - ANESTHESIA Hx Anesthesia: No Hx Anesthesia Reactions: No Hx Malignant Hyperthermia: No Meds Allergies/Adverse Reactions: Allergies Allergy/AdvReac Type Severity Reaction Status Date / Time No Known Allergies Allergy Verified 10/11/18 11:36 Physical Exam - Constitutional Appears: No Acute Distress - Head Exam Head Exam: NORMOCEPHALIC - Eye Exam Eye Exam: Normal appearance Pupil Exam: NORMAL ACCOMODATION - ENT Exam ENT Exam: Normal Exam - Neck Exam Neck exam: Positive for: Normal Inspection - Respiratory Exam Respiratory Exam: NORMAL BREATHING PATTERN - Cardiovascular Exam Cardiovascular Exam: REGULAR RHYTHM - GI/Abdominal Exam GI & Abdominal Exam: Soft - Rectal Exam Rectal Exam: Deferred - Extremities Exam Extremities exam: Positive for: joint swelling (right hand red and swokken, decrease ROM ) - Back Exam Back exam: NORMAL INSPECTION - Neurological Exam Neurological exam: Altered Results - Vital Signs Recent Vital Signs: Last Vital Signs Temp 97.8 F 10/12/18 07:00 Pulse 60 10/12/18 08:02 Resp 18 10/12/18 07:00 BP 151/97 H 10/12/18 13:16 Pulse Ox 98 10/12/18 12:02 - Labs Result Diagrams: 10/12/18 09:12 10/12/18 09:12 Labs: Laboratory Results - last 24 hr 10/12/18 10/12/18 09:12 09:12 WBC 6.4 RBC 3.19 L Hgb 10.0 L Hct 30.6 L MCV 95.7 H MCH 31.4 H MCHC 32.8 L RDW 13.6 Plt Count 392 MPV 7.9 Neut % (Auto) 92.8 H Lymph % (Auto) 5.3 L [place] % (Auto) 1.8 Eos % (Auto) 0.0 Baso % (Auto) 0.1 Neut # (Auto) 6.0 Lymph # (Auto) 0.3 L [place] # (Auto) 0.1 Eos # (Auto) 0.0 Baso # (Auto) 0.0 Neutrophils % (Manual) 88 H Lymphocytes % (Manual) 8 L Monocytes % (Manual) 4 Platelet Estimate Normal Hypochromasia (manual) Slight Sodium 137 Potassium 5.8 H Chloride 108 H Carbon Dioxide 17 L Anion Gap 18 BUN 98 H Creatinine 4.3 H Est GFR ( Amer) 16 Est GFR (Non-Af Amer) 13 Random Glucose 214 H D Calcium 9.6 Phosphorus 6.5 H Magnesium 2.2 Total Bilirubin 0.4 AST 22 ALT 10 L D Alkaline Phosphatase 71 Total Protein 7.3 Albumin 3.8 Globulin 3.4 Albumin/Globulin Ratio 1.1 Assessment & Plan (1) MEMO (acute kidney injury) Status: Acute (2) CKD (chronic kidney disease) Status: Chronic (3) Acute gout Status: Acute (4) HTN (hypertension) Status: Chronic (5) Dementia Status: Chronic - Assessment and Plan (Free Text) Assessment: A/P: Contine medications. IV hydration. Continue PO prednisone and IV antibiotic. Appreciate Dr. Villalta notes - Date & Time Date: 10/12/18 Time: 16:07
[2018-10-12] MEDS: Sodium Chloride 0.9% 1,000 ML IV SCH (22:11)
[2018-10-13] MEDS: Sodium Chloride 0.9% 1,000 ML IV SCH ×2 (06:27→12:02)
[2018-10-13 07:44] LABS: MEAN CELL VOLUME 94.9 fL (80.0-94.0); MEAN CORPUSCULAR HEMOGLOBIN 31.5 pg (27.0-31.0); MEAN CORPUSCULAR HGB CONC 33.2 g/dL (33.0-37.0); RBC 2.85 Mil/uL (4.40-5.90); RED CELL DISTRIBUTION WIDTH 13.2 % (11.5-14.5)
[2018-10-13 07:52] LABS: WHITE BLOOD COUNT 10.4 K/uL (4.8-10.8)
[2018-10-13 08:18] LABS: ALB/GLOB RATIO 1.1 (1.0-2.1); ALBUMIN 3.5 g/dL (3.5-5.0); CALCIUM 9.1 mg/dl (8.6-10.4)
--- NOTE | 2018-10-13 09:20 | CP.PCM.PN ---
Subjective - Date & Time of Evaluation Date of Evaluation: 10/13/18 Time of Evaluation: 08:50 - Subjective Subjective: Pt feels well; kailee dec on hand swelling but still stiff (+) has urine out put but g feels slow; no CP, no SOB, no edema, (+0 dry cough Objective - Vital Signs/Intake and Output Vital Signs (last 24 hours): Temp Pulse Resp BP Pulse Ox 97.3 F L 58 L 20 154/81 H 96 10/13/18 07:00 10/13/18 08:00 10/13/18 07:00 10/13/18 07:00 10/13/18 08:00 Intake and Output: 10/13/18 10/13/18 06:59 18:59 Intake Total 1300 Output Total 1550 Balance -250 - Medications Medications: Current Medications Amlodipine Besylate (Norvasc) 5 mg PO DAILY [facility] Calcium Acetate (Phoslo) 667 mg PO TID [facility] Last Admin: 10/12/18 17:21 Dose: 667 mg Fluticasone/Vilanterol (Breo Ellipta 200-25 Mcg Inh) 1 puff INH RQD [facility] Last Admin: 10/12/18 11:24 Dose: Not Given Ceftriaxone Sodium 1 gm/ (Sodium Chloride) 100 mls @ 100 mls/hr IVPB DAILY [facility]; Protocol Stop: 10/16/18 16:01 Last Admin: 10/12/18 10:30 Dose: 100 mls/hr Sodium Chloride (Sodium Chloride 0.9%) 1,000 mls @ 80 mls/hr IV .[id number] [facility] Last Admin: 10/13/18 06:27 Dose: 80 mls/hr Pantoprazole Sodium (Protonix Inj) 40 mg IVP DAILY [facility] Last Admin: 10/12/18 10:30 Dose: 40 mg Prednisone (Prednisone Tab) 40 mg PO Q12 [facility] Last Admin: 10/12/18 21:24 Dose: 40 mg Sodium Bicarbonate (Sodium Bicarbonate Tab) 650 mg PO BID [facility] Last Admin: 10/12/18 17:21 Dose: 650 mg Tamsulosin HCl (Flomax) 0.4 mg PO DAILY [facility] - Labs Labs: 10/13/18 07:37 10/13/18 07:37 - Constitutional Appears: No Acute Distress - Eye Exam Eye Exam: Normal appearance - ENT Exam ENT Exam: Mucous Membranes Moist - Neck Exam Neck Exam: Full ROM. absent: Lymphadenopathy, Normal Inspection - Respiratory Exam Respiratory Exam: Clear to Ausculation Bilateral. absent: Rales, Rhonchi, Wheezes - Cardiovascular Exam Cardiovascular Exam: REGULAR RHYTHM, +S1, +S2. absent: Gallop, JVD - GI/Abdominal Exam GI & Abdominal Exam: Soft. absent: Tenderness, Mass - Extremities Exam Extremities Exam: Full ROM, Normal Capillary Refill. absent: Calf Tenderness, Joint Swelling, Pedal Edema Assessment and Plan - Assessment and Plan (Free Text) Assessment: URI w/ BPH; ? stone; hyperkalemia - corrected MEMO on CKD, HTN, COPD, Dementia Cont hydration/ On Rocephin for Proteus Supportive care
--- NOTE | 2018-10-13 12:44 | CP.PCM.PN ---
Subjective - Date & Time of Evaluation Date of Evaluation: 10/13/18 Time of Evaluation: 12:42 - Subjective Subjective: renal function improving with IV fluids c/o arthralgias- on steroids now HTN better controlled no dyspnea, good appetite Objective - Vital Signs/Intake and Output Vital Signs (last 24 hours): Temp Pulse Resp BP Pulse Ox 97.3 F L 58 L 20 154/81 H 96 10/13/18 07:00 10/13/18 08:00 10/13/18 07:00 10/13/18 07:00 10/13/18 08:00 Intake and Output: 10/13/18 10/13/18 06:59 18:59 Intake Total 1300 Output Total 1550 Balance -250 - Medications Medications: Current Medications Amlodipine Besylate (Norvasc) 5 mg PO DAILY [facility] Last Admin: 10/13/18 10:12 Dose: 5 mg Calcium Acetate (Phoslo) 667 mg PO TID [facility] Last Admin: 10/13/18 10:14 Dose: 667 mg Fluticasone/Vilanterol (Breo Ellipta 200-25 Mcg Inh) 1 puff INH RQD [facility] Last Admin: 10/12/18 11:24 Dose: Not Given Ceftriaxone Sodium 1 gm/ (Sodium Chloride) 100 mls @ 100 mls/hr IVPB DAILY [facility]; Protocol Stop: 10/16/18 16:01 Last Admin: 10/13/18 10:19 Dose: 100 mls/hr Sodium Chloride (Sodium Chloride 0.9%) 1,000 mls @ 125 mls/hr IV .Q8H [facility] Last Admin: 10/13/18 12:02 Dose: 125 mls/hr Pantoprazole Sodium (Protonix Inj) 40 mg IVP DAILY [facility] Last Admin: 10/13/18 10:14 Dose: 40 mg Prednisone (Prednisone Tab) 40 mg PO Q12 [facility] Last Admin: 10/13/18 10:14 Dose: 40 mg Sodium Bicarbonate (Sodium Bicarbonate Tab) 650 mg PO BID [facility] Last Admin: 10/13/18 10:14 Dose: 650 mg Tamsulosin HCl (Flomax) 0.4 mg PO DAILY [facility] Last Admin: 10/13/18 10:14 Dose: 0.4 mg - Labs Labs: 10/13/18 07:37 10/13/18 07:37 - Constitutional Appears: No Acute Distress, Chronically Ill - Head Exam Head Exam: ATRAUMATIC, NORMAL INSPECTION - Eye Exam Eye Exam: EOMI, Normal appearance - Neck Exam Neck Exam: Normal Inspection. absent: Tenderness - Respiratory Exam Respiratory Exam: Clear to Ausculation Bilateral, NORMAL BREATHING PATTERN - Cardiovascular Exam Cardiovascular Exam: REGULAR RHYTHM, +S1 - GI/Abdominal Exam GI & Abdominal Exam: Soft. absent: Tenderness - Extremities Exam Extremities Exam: Joint Swelling, Tenderness - Neurological Exam Neurological Exam: Awake, CN II-XII Intact - Skin Skin Exam: Dry, Warm Assessment and Plan (1) Chronic kidney disease, stage IV (severe) Status: Acute (2) Gout Status: Acute (3) Hypertensive chronic kidney disease with stage 5 chronic kidney disease or end stage renal disease Status: Acute (4) MEMO (acute kidney injury) Status: Acute - Assessment and Plan (Free Text) Plan: renal function improving- continue hydration same meds Add ESAs
--- NOTE | 2018-10-13 13:08 | CP.PCM.CON ---
History of Present Illness - History of Present Illness History of Present Illness: CC: anemia HPI: Patient is a poor historian. History obtained from son and chart review. Pt presented to the hospital last week with swelling of estremities, found to have new onset renal failure and anemia. Patient denies change in bowel habits, melena, or visible GI bleeding. Patient's son also has anemia. Last colonoscopy was in 2007. Review of Systems - Review of Systems All systems: reviewed and no additional remarkable complaints except - Constitutional Constitutional: Weakness - Gastrointestinal Gastrointestinal: Constipation - Neurological Neurological: Dizziness, Memory Loss Past Patient History - Infectious Disease Hx of Infectious Diseases: None - Past Medical History & Family History Past Medical History?: Yes Past Family History: Reviewed and not pertinent - Past Social History Chewing Tobacco Use: No Cigar Use: No Alcohol: None Drugs: Denies Home Situation {Lives}: Alone - CARDIAC Hx Hypertension: Yes - PULMONARY Hx Asthma: Yes - NEUROLOGICAL Hx Neurological Disorder: No Other/Comment: Hx of dementia - HEENT Hx HEENT Problems: No - RENAL Hx Chronic Kidney Disease: No - ENDOCRINE/METABOLIC Hx Endocrine Disorders: No - HEMATOLOGICAL/ONCOLOGICAL Hx Blood Disorders: No - INTEGUMENTARY Hx Dermatological Problems: No - MUSCULOSKELETAL/RHEUMATOLOGICAL Hx Arthritis: Yes - GASTROINTESTINAL Hx Gastrointestinal Disorders: No - GENITOURINARY/GYNECOLOGICAL Hx Genitourinary Disorders: No - PSYCHIATRIC Hx Substance Use: No - SURGICAL HISTORY Hx Surgeries: No - ANESTHESIA Hx Anesthesia: No Hx Anesthesia Reactions: No Hx Malignant Hyperthermia: No Meds Allergies/Adverse Reactions: Allergies Allergy/AdvReac Type Severity Reaction Status Date / Time No Known Allergies Allergy Verified 10/11/18 11:36 - Medications Medications: Current Medications Amlodipine Besylate (Norvasc) 5 mg PO DAILY [facility] Last Admin: 10/13/18 10:12 Dose: 5 mg Calcium Acetate (Phoslo) 667 mg PO TID [facility] Last Admin: 10/13/18 10:14 Dose: 667 mg Epoetin Paras (Procrit) 4,000 unit SC MWF [facility] Fluticasone/Vilanterol (Breo Ellipta 200-25 Mcg Inh) 1 puff INH RQD [facility] Last Admin: 10/12/18 11:24 Dose: Not Given Ceftriaxone Sodium 1 gm/ (Sodium Chloride) 100 mls @ 100 mls/hr IVPB DAILY [facility]; Protocol Stop: 10/16/18 16:01 Last Admin: 10/13/18 10:19 Dose: 100 mls/hr Sodium Chloride (Sodium Chloride 0.9%) 1,000 mls @ 125 mls/hr IV .Q8H [facility] Last Admin: 10/13/18 12:02 Dose: 125 mls/hr Pantoprazole Sodium (Protonix Inj) 40 mg IVP DAILY [facility] Last Admin: 10/13/18 10:14 Dose: 40 mg Prednisone (Prednisone Tab) 40 mg PO Q12 [facility] Last Admin: 10/13/18 10:14 Dose: 40 mg Sodium Bicarbonate (Sodium Bicarbonate Tab) 650 mg PO BID [facility] Last Admin: 10/13/18 10:14 Dose: 650 mg Tamsulosin HCl (Flomax) 0.4 mg PO DAILY [facility] Last Admin: 10/13/18 10:14 Dose: 0.4 mg Physical Exam - Constitutional Appears: Well, No Acute Distress - Head Exam Head Exam: NORMOCEPHALIC - Eye Exam Eye Exam: Normal appearance. absent: Scleral icterus - ENT Exam ENT Exam: Normal Exam - Respiratory Exam Respiratory Exam: NORMAL BREATHING PATTERN - Cardiovascular Exam Cardiovascular Exam: REGULAR RHYTHM - GI/Abdominal Exam GI & Abdominal Exam: Soft. absent: Organomegaly, Tenderness - Rectal Exam Rectal Exam: Deferred - Extremities Exam Extremities exam: Positive for: normal inspection - Back Exam Back exam: NORMAL INSPECTION - Neurological Exam Neurological exam: Alert - Psychiatric Exam Psychiatric exam: Normal Affect - Skin Skin Exam: Normal Color Results - Vital Signs Recent Vital Signs: Last Vital Signs Temp 97.3 F L 10/13/18 07:00 Pulse 58 L 10/13/18 08:00 Resp 20 10/13/18 07:00 BP 154/81 H 10/13/18 07:00 Pulse Ox 96 10/13/18 08:00 - Labs Result Diagrams: 10/13/18 07:37 10/13/18 07:37 Labs: Laboratory Results - last 24 hr 10/13/18 10/13/18 10/13/18 07:37 07:37 07:37 WBC 10.4 D RBC 2.85 L Hgb 9.0 L Hct 27.1 L MCV 94.9 H MCH 31.5 H MCHC 33.2 RDW 13.2 Plt Count 383 MPV 8.0 Sodium 136 Potassium 4.8 Chloride 106 Carbon Dioxide 18 L Anion Gap 16 BUN 104 H* Creatinine 3.9 H Est GFR ( Amer) 18 Est GFR (Non-Af Amer) 15 POC Glucose (mg/dL) Random Glucose 179 H Calcium 9.1 Phosphorus 5.1 H % Saturation 32 Ferritin 954.0 Total Bilirubin 0.2 AST 26 ALT 21 D Alkaline Phosphatase 66 Total Protein 6.6 Albumin 3.5 Globulin 3.1 Albumin/Globulin Ratio 1.1 Stool Occult Blood 10/13/18 10/13/18 11:47 12:12 WBC RBC Hgb Hct MCV MCH MCHC RDW Plt Count MPV Sodium Potassium Chloride Carbon Dioxide Anion Gap BUN Creatinine Est GFR ( Amer) Est GFR (Non-Af Amer) POC Glucose (mg/dL) 230 H Random Glucose Calcium Phosphorus % Saturation Ferritin Total Bilirubin AST ALT Alkaline Phosphatase Total Protein Albumin Globulin Albumin/Globulin Ratio Stool Occult Blood Negative Assessment & Plan (1) Anemia Assessment and Plan: normocytic. No overt bleeding noted. Likely anemia of chronic disease. Rec: check stool occult blood. Discussed with pat and his son. On Epogen. Status: Acute (2) MEMO (acute kidney injury) Assessment and Plan: followed by Nephrology Status: Acute (3) Gout Assessment and Plan: stable Status: Acute - Date & Time Date: 10/13/18 Time: 13:11
[2018-10-13] MEDS ORDERED: Alum-Mag Hydrox-Simethicone Susp (30 mL) PO ONE (19:36)
[2018-10-14] MEDS: Sodium Chloride 0.9% 1,000 ML IV SCH ×3 (01:08→19:55)
[2018-10-14] MEDS: Fluticasone-Vilanterol 200/25mcg Diskus INH SCH (09:23)
[2018-10-14 11:17] LABS: BASO % 0.1 % (0.0-2.0); HEMOGLOBIN 9.9 g/dL (12.0-18.0); LYMPH # 0.4 K/uL (1.0-4.3); LYMPH % 3.6 % (20.0-40.0); MEAN CELL VOLUME 94.6 fL (80.0-94.0); MEAN CORPUSCULAR HEMOGLOBIN 31.4 pg (27.0-31.0); MEAN CORPUSCULAR HGB CONC 33.1 g/dL (33.0-37.0); MEAN PLATELET VOLUME 8.1 fL (7.2-11.7); MONO # 0.4 K/uL (0.0-0.8); MONO % 3.7 % (0.0-10.0); NEUT # 11.3 K/uL (1.8-7.0); NEUT % 92.6 % (50.0-75.0); PLATELET COUNT 441 K/uL (130-400); RBC 3.14 Mil/uL (4.40-5.90); RED CELL DISTRIBUTION WIDTH 13.3 % (11.5-14.5); WHITE BLOOD COUNT 12.2 K/uL (4.8-10.8)
[2018-10-14 11:37] LABS: CALCIUM 9.5 mg/dl (8.6-10.4)
[2018-10-14 11:56] LABS: LYMPHOCYTE 3 % (20-40); MONOCYTE 4 % (0-10); NEUTROPHIL 93 % (50-75); PLATELET ESTIMATE SLIGHTLY INCREASED (NORMAL); TOTAL CELLS COUNTED 100
--- NOTE | 2018-10-14 13:33 | CARD ---
APPROVED REPORT Date of service: 10/11/2018 EKG Measurement Heart [id number] <Conclusion> Sinus bradycardia Left anterior fascicular block Nonspecific ST and T wave abnormality Abnormal ECG
[2018-10-15 01:58] VITALS: RESP 20
--- NOTE | 2018-10-15 08:00 | CP.PCM.PN ---
Subjective - Date & Time of Evaluation Date of Evaluation: 10/15/18 Time of Evaluation: 07:40 - Subjective Subjective: Pt no complain exc R wrist nagging pain; Dec movement but refuse PT will get out of here; o CP, n SOB, no edema, no n/v; no diarrhea (+) dry cough, palpitation Objective - Vital Signs/Intake and Output Vital Signs (last 24 hours): Temp Pulse Resp BP Pulse Ox 97.4 F L 65 20 136/80 99 10/15/18 01:57 10/15/18 01:57 10/15/18 01:57 10/15/18 01:57 10/15/18 01:57 Intake and Output: 10/15/18 10/15/18 06:59 18:59 Intake Total 1200 Output Total 900 Balance 300 - Medications Medications: Current Medications Amlodipine Besylate (Norvasc) 10 mg PO DAILY [facility] Calcium Acetate (Phoslo) 667 mg PO TID [facility] Last Admin: 10/14/18 17:28 Dose: 667 mg Epoetin Paras (Procrit) 4,000 unit SC MWF [facility] Fluticasone/Vilanterol (Breo Ellipta 200-25 Mcg Inh) 1 puff INH RQD [facility] Last Admin: 10/14/18 09:23 Dose: 1 puff Ceftriaxone Sodium 1 gm/ (Sodium Chloride) 100 mls @ 100 mls/hr IVPB DAILY [facility]; Protocol Stop: 10/16/18 16:01 Last Admin: 10/14/18 09:55 Dose: 100 mls/hr Sodium Chloride (Sodium Chloride 0.9%) 1,000 mls @ 125 mls/hr IV .Q8H [facility] Last Admin: 10/14/18 19:55 Dose: Not Given Pantoprazole Sodium (Protonix Inj) 40 mg IVP DAILY [facility] Last Admin: 10/14/18 09:53 Dose: 40 mg Prednisone (Prednisone Tab) 30 mg PO BID [facility] Last Admin: 10/14/18 17:27 Dose: 30 mg Sodium Bicarbonate (Sodium Bicarbonate Tab) 650 mg PO BID [facility] Last Admin: 10/14/18 17:28 Dose: 650 mg Tamsulosin HCl (Flomax) 0.4 mg PO DAILY [facility] Last Admin: 10/14/18 09:54 Dose: 0.4 mg - Labs Labs: 10/14/18 11:09 10/14/18 11:09 - Constitutional Appears: No Acute Distress - Eye Exam Eye Exam: Normal appearance - ENT Exam ENT Exam: Mucous Membranes Moist - Neck Exam Neck Exam: Full ROM. absent: Lymphadenopathy, Thyromegaly - Respiratory Exam Respiratory Exam: Clear to Ausculation Bilateral. absent: Rales, Rhonchi, Wheezes - Cardiovascular Exam Cardiovascular Exam: REGULAR RHYTHM, +S1, +S2, Murmur. absent: Diastolic murmur, Gallop, JVD - GI/Abdominal Exam GI & Abdominal Exam: Soft. absent: Tenderness - Extremities Exam Extremities Exam: Normal Capillary Refill. absent: Calf Tenderness, Full ROM, Joint Swelling, Pedal Edema Assessment and Plan - Assessment and Plan (Free Text) Assessment: R wrist - gout - kailee improve; UTI w/ MEMO; HTN w/ CKD, COPD, BPH Steroid induce hyperglycemia FX w/ coverage; Dec steroid Cont other meds/ recheck labs
[2018-10-15] MEDS: Sodium Chloride 0.9% 1,000 ML IV SCH ×3 (08:48→19:30)
[2018-10-15] MEDS ORDERED: Epoetin Alfa 4000 UNIT/ML Inj SC SCH (09:00)
--- NOTE | 2018-10-15 10:06 | CP.PCM.PN ---
Subjective - Date & Time of Evaluation Date of Evaluation: 10/15/18 Time of Evaluation: 10:04 - Subjective Subjective: poor insight into condition no distress right wrist is better labs reviewed off ivf for now unable to obtain ROS due to above Objective - Vital Signs/Intake and Output Vital Signs (last 24 hours): Temp Pulse Resp BP Pulse Ox 98.2 F 62 20 167/81 H 97 10/15/18 07:15 10/15/18 08:46 10/15/18 08:46 10/15/18 07:15 10/15/18 07:15 Intake and Output: 10/15/18 10/15/18 06:59 18:59 Intake Total 1200 Output Total 900 Balance 300 - Medications Medications: Current Medications Amlodipine Besylate (Norvasc) 10 mg PO DAILY [facility] Last Admin: 10/15/18 09:18 Dose: 10 mg Calcium Acetate (Phoslo) 667 mg PO TID [facility] Last Admin: 10/15/18 09:18 Dose: 667 mg Epoetin Paras (Procrit) 4,000 unit SC MWF [facility] Fluticasone/Vilanterol (Breo Ellipta 200-25 Mcg Inh) 1 puff INH RQD [facility] Last Admin: 10/14/18 09:23 Dose: 1 puff Ceftriaxone Sodium 1 gm/ (Sodium Chloride) 100 mls @ 100 mls/hr IVPB DAILY [facility]; Protocol Stop: 10/16/18 16:01 Last Admin: 10/15/18 09:49 Dose: 100 mls/hr Sodium Chloride (Sodium Chloride 0.9%) 1,000 mls @ 125 mls/hr IV .Q8H [facility] Last Admin: 10/15/18 08:48 Dose: 125 mls/hr Pantoprazole Sodium (Protonix Inj) 40 mg IVP DAILY [facility] Last Admin: 10/15/18 09:15 Dose: 40 mg Prednisone (Prednisone Tab) 30 mg PO BID [facility] Last Admin: 10/15/18 09:18 Dose: 30 mg Sodium Bicarbonate (Sodium Bicarbonate Tab) 650 mg PO BID [facility] Last Admin: 10/15/18 09:18 Dose: 650 mg Tamsulosin HCl (Flomax) 0.4 mg PO DAILY [facility] Last Admin: 10/15/18 09:18 Dose: 0.4 mg - Labs Labs: 10/14/18 11:09 10/14/18 11:09 - Constitutional Appears: Confused, Chronically Ill - Head Exam Head Exam: ATRAUMATIC, NORMAL INSPECTION - Eye Exam Eye Exam: EOMI - ENT Exam ENT Exam: Mucous Membranes Moist - Neck Exam Neck Exam: Full ROM. absent: Lymphadenopathy - Respiratory Exam Respiratory Exam: Clear to Ausculation Bilateral. absent: Accessory Muscle Use - Cardiovascular Exam Cardiovascular Exam: REGULAR RHYTHM. absent: Rubs - GI/Abdominal Exam GI & Abdominal Exam: Soft. absent: Tenderness - Extremities Exam Extremities Exam: Full ROM. absent: Pedal Edema Additional comments: moving joints well, no effusion noted - Neurological Exam Neurological Exam: Alert. absent: Oriented x3 Assessment and Plan - Assessment and Plan (Free Text) Assessment: nanette on ckd, better with ivf probable gout, better on steroids uti, on treatment continue same measures trend labs
[2018-10-15] MEDS: Fluticasone-Vilanterol 200/25mcg Diskus INH SCH (10:29)
--- NOTE | 2018-10-15 11:53 | CP.PCM.PN ---
Subjective - Date & Time of Evaluation Date of Evaluation: 10/15/18 Time of Evaluation: 11:51 - Subjective Subjective: Poor understanding of his illness. "I'm walking out of here" Main c/o is pain in right wrist + Normocytic anemia, stool OB negative. No GI symptoms. Pt unlikely to agree to endoscopic procedures. Renal function improving, on Prednisone Objective - Vital Signs/Intake and Output Vital Signs (last 24 hours): Temp Pulse Resp BP Pulse Ox 98.2 F 62 20 167/81 H 97 10/15/18 07:15 10/15/18 08:46 10/15/18 08:46 10/15/18 07:15 10/15/18 07:15 Intake and Output: 10/15/18 10/15/18 06:59 18:59 Intake Total 1200 Output Total 900 Balance 300 - Medications Medications: Current Medications Amlodipine Besylate (Norvasc) 10 mg PO DAILY [facility] Last Admin: 10/15/18 09:18 Dose: 10 mg Calcium Acetate (Phoslo) 667 mg PO TID [facility] Last Admin: 10/15/18 09:18 Dose: 667 mg Epoetin Paras (Procrit) 4,000 unit SC MWF [facility] Last Admin: 10/15/18 11:44 Dose: 4,000 unit Fluticasone/Vilanterol (Breo Ellipta 200-25 Mcg Inh) 1 puff INH RQD [facility] Last Admin: 10/15/18 10:29 Dose: 1 puff Ceftriaxone Sodium 1 gm/ (Sodium Chloride) 100 mls @ 100 mls/hr IVPB DAILY [facility]; Protocol Stop: 10/16/18 16:01 Last Admin: 10/15/18 09:49 Dose: 100 mls/hr Sodium Chloride (Sodium Chloride 0.9%) 1,000 mls @ 125 mls/hr IV .Q8H [facility] Last Admin: 10/15/18 08:48 Dose: 125 mls/hr Pantoprazole Sodium (Protonix Inj) 40 mg IVP DAILY [facility] Last Admin: 10/15/18 09:15 Dose: 40 mg Prednisone (Prednisone Tab) 30 mg PO BID [facility] Last Admin: 10/15/18 09:18 Dose: 30 mg Sodium Bicarbonate (Sodium Bicarbonate Tab) 650 mg PO BID [facility] Last Admin: 10/15/18 09:18 Dose: 650 mg Tamsulosin HCl (Flomax) 0.4 mg PO DAILY [facility] Last Admin: 10/15/18 09:18 Dose: 0.4 mg - Labs Labs: 10/14/18 11:09 10/14/18 11:09 - Constitutional Appears: Well, No Acute Distress - Head Exam Head Exam: NORMOCEPHALIC - Respiratory Exam Respiratory Exam: Clear to Ausculation Bilateral - Cardiovascular Exam Cardiovascular Exam: REGULAR RHYTHM - GI/Abdominal Exam GI & Abdominal Exam: Soft. absent: Tenderness Assessment and Plan (1) Anemia Assessment & Plan: Chronic disease anemia Stool OB negative Refer to our office after discharge Will sign off Status: Acute (2) MEMO (acute kidney injury) Status: Acute (3) Gout Status: Acute
[2018-10-16] MEDS: Sodium Chloride 0.9% 1,000 ML IV SCH ×2 (03:53→06:00)
[2018-10-16 06:51] LABS: BASO % 0.2 % (0.0-2.0); HEMOGLOBIN 9.5 g/dL (12.0-18.0); LYMPH # 0.6 K/uL (1.0-4.3); LYMPH % 5.8 % (20.0-40.0); MEAN CELL VOLUME 94.2 fL (80.0-94.0); MEAN CORPUSCULAR HEMOGLOBIN 30.5 pg (27.0-31.0); MEAN CORPUSCULAR HGB CONC 32.3 g/dL (33.0-37.0); MEAN PLATELET VOLUME 7.7 fL (7.2-11.7); MONO # 0.7 K/uL (0.0-0.8); MONO % 6.9 % (0.0-10.0); NEUT # 8.8 K/uL (1.8-7.0); NEUT % 87.1 % (50.0-75.0); PLATELET COUNT 401 K/uL (130-400); RBC 3.11 Mil/uL (4.40-5.90); RED CELL DISTRIBUTION WIDTH 13.1 % (11.5-14.5); WHITE BLOOD COUNT 10.1 K/uL (4.8-10.8)
[2018-10-16 06:58] LABS: ALB/GLOB RATIO 1.2 (1.0-2.1); ALBUMIN 3.2 g/dL (3.5-5.0); CALCIUM 9.1 mg/dl (8.6-10.4)
[2018-10-16] MEDS: Fluticasone-Vilanterol 200/25mcg Diskus INH SCH (07:44)
[2018-10-16 09:50] LABS: LYMPHOCYTE 5 % (20-40); MONOCYTE 3 % (0-10); NEUTROPHIL 92 % (50-75); PLATELET ESTIMATE NORMAL (NORMAL); TOTAL CELLS COUNTED 100
[2018-10-16 09:51] LABS: HYPOCHROMIC SLIGHT
[2018-10-16 09:52] LABS: POLYCHROMIC SLIGHT
[2018-10-16 10:25] LABS: TARGET CELLS SLIGHT
[2018-10-16] MEDS ORDERED: Sodium Chloride 0.9% 1,000 ML IV SCH (14:47)
--- NOTE | 2018-10-16 14:50 | CP.PCM.PN ---
Subjective - Date & Time of Evaluation Date of Evaluation: 10/16/18 Time of Evaluation: 14:48 - Subjective Subjective: pt seen and examined in bed, no distress confused on iv fluids no overnight events ROS- unable to obtain due to clinical condition Objective - Vital Signs/Intake and Output Vital Signs (last 24 hours): Temp Pulse Resp BP Pulse Ox 98.0 F 74 20 184/94 H 100 10/16/18 07:58 10/16/18 07:58 10/16/18 07:58 10/16/18 07:58 10/16/18 07:58 Intake and Output: 10/16/18 10/16/18 06:59 18:59 Intake Total 1000 Output Total 1200 Balance -200 - Medications Medications: Current Medications Amlodipine Besylate (Norvasc) 10 mg PO DAILY [facility] Last Admin: 10/16/18 09:50 Dose: 10 mg Calcium Acetate (Phoslo) 667 mg PO TID [facility] Last Admin: 10/16/18 13:14 Dose: 667 mg Epoetin Paras (Procrit) 4,000 unit SC MWF [facility] Last Admin: 10/15/18 11:44 Dose: 4,000 unit Fluticasone/Vilanterol (Breo Ellipta 200-25 Mcg Inh) 1 puff INH RQD [facility] Last Admin: 10/16/18 07:44 Dose: 1 puff Ceftriaxone Sodium 1 gm/ (Sodium Chloride) 100 mls @ 100 mls/hr IVPB DAILY [facility]; Protocol Stop: 10/16/18 16:01 Last Admin: 10/16/18 10:04 Dose: 100 mls/hr Sodium Chloride (Sodium Chloride 0.9%) 1,000 mls @ 80 mls/hr IV .[id number] [facility] Pantoprazole Sodium (Protonix Inj) 40 mg IVP DAILY [facility] Last Admin: 10/16/18 09:48 Dose: 40 mg Prednisone (Prednisone Tab) 30 mg PO BID [facility] Last Admin: 10/16/18 09:50 Dose: 30 mg Sodium Bicarbonate (Sodium Bicarbonate Tab) 650 mg PO BID [facility] Last Admin: 10/16/18 09:50 Dose: 650 mg Tamsulosin HCl (Flomax) 0.4 mg PO DAILY [facility] Last Admin: 10/16/18 09:50 Dose: 0.4 mg - Labs Labs: 10/16/18 06:37 10/16/18 06:37 - Constitutional Appears: Non-toxic, No Acute Distress - Head Exam Head Exam: ATRAUMATIC, NORMOCEPHALIC - ENT Exam ENT Exam: Mucous Membranes Moist, Normal Exam - Neck Exam Neck Exam: absent: Lymphadenopathy - Respiratory Exam Respiratory Exam: Clear to Ausculation Bilateral. absent: Rhonchi, Wheezes - Cardiovascular Exam Cardiovascular Exam: REGULAR RHYTHM, +S1, +S2 - GI/Abdominal Exam GI & Abdominal Exam: Soft. absent: Tenderness - Extremities Exam Extremities Exam: absent: Pedal Edema - Neurological Exam Neurological Exam: Alert, Awake. absent: Oriented x3 - Psychiatric Exam Psychiatric exam: Normal Affect, Normal Mood - Skin Skin Exam: Dry, Warm Assessment and Plan (1) MEMO (acute kidney injury) Status: Acute (2) Gout Status: Acute (3) Hyperkalemia Status: Acute (4) HTN (hypertension) Status: Chronic - Assessment and Plan (Free Text) Plan: MEMO resolving with fluids cr trending down cut back on fluids to 80 cc/hr labs in am on Abx for UTI on steroids for gout
--- NOTE | 2018-10-16 16:07 | CP.PCM.DIS ---
Provider - Provider Date of Admission: 10/14/18 16:37 Attending physician: Yevgeniy Vallecillo MD Consults: 10/11/18 13:57 Nephrology Consult Routine Comment: Consulting Provider: Andrew Villalta Consulting Physician: Andrew Villalta Reason for Consult: renal failure 10/13/18 09:08 Physician Consult Routine Comment: Consulting Provider: Mario Melgoza Consulting Physician: Mario Melgoza Reason for Consult: droping hgb Additional Comments: dec hgb Time Spent in preparation of Discharge (in minutes): 35 Diagnosis - Discharge Diagnosis (1) MEMO (acute kidney injury) Status: Acute (2) CKD (chronic kidney disease) Status: Chronic (3) Acute gout Status: Acute (4) HTN (hypertension) Status: Chronic (5) Dementia Status: Chronic Hospital Course - Lab Results Lab Results: Micro Results 10/11/18 15:18 Urine Random Urine Culture - Final Proteus Mirabilis Most Recent Lab Values WBC 10.1 K/uL (4.8-10.8) 10/16/18 06:37 RBC 3.11 Mil/uL (4.40-5.90) L 10/16/18 06:37 Hgb 9.5 g/dL (12.0-18.0) L 10/16/18 06:37 Hct 29.3 % (35.0-51.0) L 10/16/18 06:37 MCV 94.2 fL (80.0-94.0) H 10/16/18 06:37 MCH 30.5 pg (27.0-31.0) 10/16/18 06:37 MCHC 32.3 g/dL (33.0-37.0) L 10/16/18 06:37 RDW 13.1 % (11.5-14.5) 10/16/18 06:37 Plt Count 401 K/uL (130-400) H 10/16/18 06:37 MPV 7.7 fL (7.2-11.7) 10/16/18 06:37 Neut % (Auto) 87.1 % (50.0-75.0) H 10/16/18 06:37 Lymph % (Auto) 5.8 % (20.0-40.0) L 10/16/18 06:37 [place] % (Auto) 6.9 % (0.0-10.0) 10/16/18 06:37 Eos % (Auto) 0.0 % (0.0-4.0) 10/16/18 06:37 Baso % (Auto) 0.2 % (0.0-2.0) 10/16/18 06:37 Neut # (Auto) 8.8 K/uL (1.8-7.0) H 10/16/18 06:37 Lymph # (Auto) 0.6 K/uL (1.0-4.3) L 10/16/18 06:37 [place] # (Auto) 0.7 K/uL (0.0-0.8) 10/16/18 06:37 Eos # (Auto) 0.0 K/uL (0.0-0.7) 10/16/18 06:37 Baso # (Auto) 0.0 K/uL (0.0-0.2) 10/16/18 06:37 Neutrophils % (Manual) 92 % (50-75) H 10/16/18 06:37 Lymphocytes % (Manual) 5 % (20-40) L 10/16/18 06:37 Monocytes % (Manual) 3 % (0-10) 10/16/18 06:37 Platelet Estimate Normal (NORMAL) 10/16/18 06:37 RBC Morphology Normal 10/14/18 11:09 Polychromasia Slight 10/16/18 06:37 Hypochromasia (manual) Slight 10/16/18 06:37 Target Cells Slight 10/16/18 06:37 Sodium 133 mmol/L (132-148) 10/16/18 06:37 Potassium 5.3 mmol/L (3.6-5.2) H 10/16/18 06:37 Chloride 106 mmol/L (98-107) 10/16/18 06:37 Carbon Dioxide 23 mmol/L (22-30) 10/16/18 06:37 Anion Gap 10 (10-20) 10/16/18 06:37 BUN 48 mg/dL (9-20) H 10/16/18 06:37 Creatinine 1.7 mg/dL (0.8-1.5) H 10/16/18 06:37 Est GFR ( Amer) 47 10/16/18 06:37 Est GFR (Non-Af Amer) 39 10/16/18 06:37 POC Glucose (mg/dL) 230 mg/dL (65-110) H 10/13/18 11:47 Random Glucose 119 mg/dL (75-110) H D 10/16/18 06:37 Hemoglobin A1c 5.9 % (4.2-6.5) 10/16/18 06:37 Uric Acid 11.5 mg/dL (3.5-8.5) H 10/11/18 12:43 Calcium 9.1 mg/dl (8.6-10.4) 10/16/18 06:37 Phosphorus 5.1 mg/dL (2.5-4.5) H 10/13/18 07:37 Magnesium 2.2 mg/dL (1.6-2.3) 10/12/18 09:12 % Saturation 32 (20-55) 10/13/18 07:37 Ferritin 954.0 ng/mL 10/13/18 07:37 Total Bilirubin 0.3 mg/dL (0.2-1.3) 10/16/18 06:37 AST 21 U/L (17-59) 10/16/18 06:37 ALT 31 U/L (21-72) 10/16/18 06:37 Alkaline Phosphatase 53 U/L (38-126) 10/16/18 06:37 Troponin I 0.0130 ng/mL (0.00-0.120) 10/11/18 12:43 Total Protein 6.0 g/dL (6.3-8.3) L 10/16/18 06:37 Albumin 3.2 g/dL (3.5-5.0) L 10/16/18 06:37 Globulin 2.8 gm/dL (2.2-3.9) 10/16/18 06:37 Albumin/Globulin Ratio 1.2 (1.0-2.1) 10/16/18 06:37 PTH Intact Whole Molec 307 pg/mL (14-64) H 10/13/18 07:37 Urine Color Yellow (YELLOW) 10/11/18 15:18 Urine Clarity Clear (Clear) 10/11/18 15:18 Urine pH 5.0 (5.0-8.0) 10/11/18 15:18 Ur Specific [place] 1.014 (1.003-1.030) 10/11/18 15:18 Urine Protein 2+ mg/dL (NEGATIVE) H 10/11/18 15:18 Urine Glucose (UA) Normal mg/dL (Normal) 10/11/18 15:18 Urine Ketones Negative mg/dL (NEGATIVE) 10/11/18 15:18 Urine Blood Negative (NEGATIVE) 10/11/18 15:18 Urine Nitrate Negative (NEGATIVE) 10/11/18 15:18 Urine Bilirubin Negative (NEGATIVE) 10/11/18 15:18 Urine Urobilinogen Normal mg/dL (0.2-1.0) 10/11/18 15:18 Ur Leukocyte Esterase Neg Dianne/uL (Negative) 10/11/18 15:18 Urine WBC (Auto) 2 /hpf (0-5) 10/11/18 15:18 Urine RBC (Auto) < 1 /hpf (0-3) 10/11/18 15:18 Ur Squamous Epith Cells 1 /hpf (0-5) 10/11/18 15:18 Urine Bacteria Rare (<OCC) 10/11/18 15:18 Hyaline Casts 6-10 /lpf (0-2) H 10/11/18 15:18 Stool Occult Blood Negative (NEGATIVE) 10/13/18 12:12 - Hospital Course Hospital Course: Admitted regular floor. Placed on IV hydation and IV antibiotic. C/o swelling and redness hands. Placed on Prednisone. Seen By Parish Villalta and Dr. melgoza. Nisula better. Wants to go home. Discharge Exam - Head Exam Head Exam: ATRAUMATIC, NORMAL INSPECTION, NORMOCEPHALIC - Eye Exam Eye Exam: Normal appearance - ENT Exam ENT Exam: Normal Exam - Neck Exam Neck exam: Normal Inspection - Respiratory Exam Respiratory Exam: NORMAL BREATHING PATTERN - Cardiovascular Exam Cardiovascular Exam: REGULAR RHYTHM - GI/Abdominal Exam GI & Abdominal Exam: Soft - Rectal Exam Rectal Exam: Deferred - Extremities Exam Extremities exam: joint swelling - Neurological Exam Neurological exam: Altered Discharge Plan - Discharge Medications Prescriptions: amLODIPine [Norvasc] 10 mg PO DAILY #30 tab - Follow Up Plan Condition: STABLE Disposition: HOME/ ROUTINE Patient education suggested?: Yes Instructions: Renal Failure Diet (DC)
[2018-10-16 16:23] VITALS: BP 150/76; PULSE 65; TEMP 97.8; O2SAT 99
== END 2018-10-16 17:11 | disposition home or self-care (01) | DRG 682 ==
LOC: C.ER 11:04 → C.9E 13:56 → C.6T 14:37 → OBSVTOIN 10-14 16:37
PROVIDERS: ADMIT Internal Medicine; ATTEND Internal Medicine
DX: I12.0 Hypertensive chronic kidney disease with stage 5 chronic kidney disease or end stage renal disease (principal); N18.6 End stage renal disease; N17.9 Acute kidney failure, unspecified; N39.0 Urinary tract infection, site not specified; J44.9 Chronic obstructive pulmonary disease, unspecified; M10.9 Gout, unspecified; E87.5 Hyperkalemia; D63.8 Anemia in other chronic diseases classified elsewhere; F03.90 Unspecified dementia, unspecified severity, without behavioral disturbance, psychotic disturbance, mood disturbance, and anxiety; Z87.891 Personal history of nicotine dependence; N40.0 Benign prostatic hyperplasia without lower urinary tract symptoms

== ENCOUNTER 2019-01-22 17:29 | Emergency (ER) | payer MEDICARE ==
[2019-01-22 17:44] VITALS: TEMP 98.4
[2019-01-22] MEDS ORDERED: Aspirin 325 mg EC Tablets PO STA (18:06)
[2019-01-22] MEDS ORDERED: Aspirin 325 mg EC Tablets PO ONE (18:33)
[2019-01-22 18:34] LABS: BASO % 0.7 % (0.0-2.0); EOS # 0.2 K/uL (0.0-0.7); EOS % 3.3 % (0.0-4.0); HEMOGLOBIN 9.6 g/dL (12.0-18.0); LYMPH # 1.4 K/uL (1.0-4.3); MEAN CORPUSCULAR HEMOGLOBIN 31.6 pg (27.0-31.0); MEAN CORPUSCULAR HGB CONC 32.7 g/dL (33.0-37.0); MEAN PLATELET VOLUME 7.8 fL (7.2-11.7); MONO # 0.4 K/uL (0.0-0.8); MONO % 8.7 % (0.0-10.0); NEUT % 60.3 % (50.0-75.0); RBC 3.05 Mil/uL (4.40-5.90); RED CELL DISTRIBUTION WIDTH 14.1 % (11.5-14.5)
--- NOTE | 2019-01-22 18:36 | C.PDOC ---
History Of Present Illness 83 year old male brought into the ED by his son for evaluation of occasional chest discomfort for the past 2 to 3 weeks. Pain is not associated with substernal chest pressure or SOB and is not digitally or positionally reproducible. Patient reports that he sometimes gets the pain while walk and resolves when he stops walking. Patient had a recent admission with Dr. Vallecillo for CP. Patient has been noncompliant with his BP medications and took a dose yesterday for the first time in a long time, but none today. He denies any GERD. Time Seen by Provider: 01/22/19 17:54 Chief Complaint (Nursing): Chest Pain History Per: Patient History/Exam Limitations: no limitations Onset/Duration Of Symptoms: Days (2 to 3 weeks) Current Symptoms Are (Timing): Still Present Recent travel outside of the [place]: No Additional History Per: Patient Past Medical History Reviewed: Historical Data, Nursing Documentation, Vital Signs Vital Signs: Last Vital Signs Temp 98.4 F 01/22/19 17:37 Pulse 62 01/22/19 18:21 Resp 14 01/22/19 18:21 BP 159/78 H 01/22/19 18:21 Pulse Ox 99 01/22/19 18:21 Primary Care Provider: Yevgeniy Vallecillo Medical History PMH: Arthritis, Asthma, HTN Denies: Chronic Kidney Disease Surgical History: No Surg Hx Family History: States: Unknown Family Hx - Social History Hx Tobacco Use: No Hx Alcohol Use: No Hx Substance Use: No - Immunization History Hx Tetanus Toxoid Vaccination: No Hx Influenza Vaccination: No Hx Pneumococcal Vaccination: No Review Of Systems Constitutional: Negative for: Fever, Chills Cardiovascular: Positive for: Chest Pain (discomfort ) Respiratory: Negative for: Shortness of Breath Gastrointestinal: Negative for: Nausea, Vomiting, Diarrhea Physical Exam - Physical Exam Appears: Non-toxic, No Acute Distress, Other (Obese black male ) Skin: Warm, Dry, No Rash Head: Atraumatic, Normacephalic Eye(s): bilateral: Normal Inspection Oral Mucosa: Moist Neck: Normal ROM, Supple Chest: Symmetrical, No Deformity, No Tenderness (digitally or positionally reproducible anterior chest wall pain ) Cardiovascular: Rhythm Regular, No Murmur Respiratory: Normal Breath Sounds, No Rales, No Rhonchi, No Wheezing Gastrointestinal/Abdominal: Soft, No Tenderness Neurological/Psych: Oriented x3, Normal Speech, Normal Cognition ED Course And Treatment - Laboratory Results Result Diagrams: 01/22/19 18:26 01/22/19 18:26 Lab Interpretation: Normal (unchanged mild anemia c/w 10/21) ECG: Interpreted By Me ECG Rhythm: Sinus Rhythm ECG Interpretation: Normal Rate From EC O2 Sat by Pulse Oximetry: 99 (on RA) Pulse Ox Interpretation: Normal - Radiology CXR: Interpreted by Me CXR Interpretation: Yes: No Acute Disease Reevaluation Time: 19:56 Reassessment Condition: Unchanged (remains asymptomatic) Medical Decision Making Medical Decision Making: Plan: EKG Labs CXR Norvasc 10mg PO Ecotrin 325mg PO 2000: results d/w pt and son @ bedside, Obs/Adm/anticoag recommended pt adamantly declines inpt eval and prefers to f/u with PMD as opt. Disposition Doctor Will See Patient In The: Office Counseled Patient/Family Regarding: Studies Performed, Diagnosis - Disposition Disposition: HOME/ ROUTINE Disposition Time: 19:58 Condition: GOOD Forms: [facility] (Kyrgyz) - Clinical Impression Clinical Impression: Chest discomfort - Scribe Statement The provider has reviewed the documentation as recorded by the Marvibjanessa Catherine All medical record entries made by the Marvibjanessa were at my direction and personally dictated by me. I have reviewed the chart and agree that the record accurately reflects my personal performance of the history, physical exam, medical decision making, and the department course for this patient. I have also personally directed, reviewed, and agree with the discharge instructions and disposition.
[2019-01-22 18:37] LABS: MEAN CELL VOLUME 96.5 fL (80.0-94.0)
[2019-01-22 18:39] LABS: INR 1.2; PARTIAL THROMBOPLASTIN TIME 29.5 SECONDS (21-34); PROTHROMBIN TIME 13.1 SECONDS (9.7-12.2)
[2019-01-22 18:46] LABS: ALB/GLOB RATIO 1.4 (1.0-2.1); ALBUMIN 3.8 g/dL (3.5-5.0); ALT/SGPT 17 U/L (21-72); AST/SGOT 26 U/L (17-59); BLOOD UREA NITROGEN 33 mg/dL (9-20); CALCIUM 9.7 mg/dl (8.6-10.4); GFR NON-AFRICAN AMERICAN 27
[2019-01-22 18:55] LABS: B-TYPE NATRIURETIC PEPTIDE 1170 pg/mL (0-900)
[2019-01-22 20:48] VITALS: BP 173/68; PULSE 79; RESP 16; O2SAT 95
--- NOTE | 2019-01-23 09:00 | RAD ---
Date of service: 01/22/2019 HISTORY: chest pain COMPARISON: 02/27/2017 TECHNIQUE: 1 view obtained. FINDINGS: LUNGS: No active pulmonary disease. Small nodular density at the right lung base may represent prominent vessel end versus confluence of shadows with ribs and vessels. PLEURA: No significant pleural effusion identified, no pneumothorax apparent. CARDIOVASCULAR: No aortic atherosclerotic calcification present. Normal cardiac size. No pulmonary vascular congestion. OSSEOUS STRUCTURES: No significant abnormalities. VISUALIZED UPPER ABDOMEN: Normal. OTHER FINDINGS: None. IMPRESSION: No active disease.
--- NOTE | 2019-01-24 00:29 | CARD ---
APPROVED REPORT Date of service: 01/22/2019 EKG Measurement Heart [id number] <Conclusion> Normal sinus rhythm Left axis deviation T wave abnormality, consider lateral ischemia Abnormal ECG
== END 2019-01-22 20:24 | disposition home or self-care (01) ==
LOC: C.ER 17:29
DX: R07.9 Chest pain, unspecified (principal); I10 Essential (primary) hypertension